=== PATIENT | male | born 1960 | race Caucasian/White ===

== ENCOUNTER 2016-11-27 18:04 | Inpatient (IN) | payer OTHER, MEDICARE ==
[~2016-11-27] VITALS: Ht 185.4 cm; Wt 91.6 kg
--- NOTE | 2016-11-27 18:35 | ED GENERAL ADULT ---
History of Present Illness General Chief Complaint: General Adult Stated Complaint: PT WAS SIB BY URGENT CARE BLOOD WAS LOW Source: patient, family Exam Limitations: no limitations Allergies Coded Allergies: NO KNOWN ALLERGIES (11/27/16) Reconcile Medications Warfarin Sodium (Coumadin) 10 MG TABLET 1 TAB PO DAILY PE/DVT (Reported) Triage Note: TRIAGE: PT SENT TO ER BY DR PERDOMO AT [facility] FOR EVAL. C/C DIFFUSE ABD PAIN SINCE THURSDAY NIGHT FOR WHICH HE HAS BEEN TAKING ASPIRIN WITH SOME RELIEF NOTED. PT TAKES COUMADIN R/T HX OF DVT AND PULMONARY EMBOLISM. PT NOW HAS BLACK/TARRY STOOLS SINCE THURSDAY. DR MULTANI REPORTED HE DID HGB IN THE OFFICE BUT GOT 2 DIFFERENT READINGS OF 9.2 AND 7.8. Triage Nurses Notes Reviewed? yes Onset: Gradual Duration: day(s): (5-6) Timing: recent history Injury Environment: home Severity: severe Modifying Factors: Worsens With: eating. Associated Symptoms: fever, abdominal pain, confusion HPI: This is a 56 year old male who presents to the ER with chief complaint of fever, abdominal pain and weakness that has gotten worse since Thursday. According to the patient and his girlfriend he started feeling ill on Thursday night. Weakness and malaise and some body aches. He states since then he has a progressive abdominal pain with some nausea. He vomited times one. Complains of some disorientation last night. He thinks he might of had a fever. Denies any known sick contacts. No recent travel. No recent antibiotic use. Of note the patient had a vascular procedure done by Dr. Adams one month ago on his left lower extremity. He states he has had a nonhealing ulcer there. According to his girlfriend who is been doing dressing changes the wound looks much improved compared to baseline. Denies any significant pain at the wound site. (ALFIE JOHNS,ALYCE) Vital Signs & Intake/Output Vital Signs & Intake/Output Vital Signs Date Time Temp Pulse Resp B/P Pulse O2 O2 Flow FiO2 Ox Delivery Rate 11/28 0717 98.0 86 20 120/58 96 Room Air 11/28 0027 99.4 95 18 140/62 97 Room Air 11/28 0000 98 Room Air 11/27 2303 99.4 93 16 106/50 96 Room Air 11/27 2100 98 16 142/65 95 Room Air 11/27 1953 Room Air 11/27 1953 103 16 126/73 11/27 1814 101.0 105 20 139/78 95 Room Air ED Intake and Output 11/28 0000 11/27 1200 Intake Total 500 Output Total Balance 500 Intake, IV 500 Patient 215 lb Weight Past History Travel History Traveled to [place] past 21 day No Medical History Any Pertinent Medical History? see below for history Neurological: NONE EENT: NONE Cardiovascular: NONE Respiratory: pulmonary embolism Gastrointestinal: NONE Hepatic: NONE Renal: NONE Musculoskeletal: FINGER AMPUTATION Psychiatric: NONE Endocrine: NONE Blood Disorders: DVT Cancer(s): NONE HOME HEALTH ATTENDANT/Reproductive: NONE Surgical History Surgical History: left leg vascular surgery by Dr. Adams one month ago Psychosocial History What is your primary language Malian Tobacco Use: Quit >30 days ago ETOH Use: denies use Illicit Drug Use: denies illicit drug use Family History Hx Contributory? No (ALYCE JUDGE MD) Review of Systems Review of Systems Constitutional: Reports: chills, fever. EENTM: Reports: no symptoms. Respiratory: Denies: cough, short of breath, sputum production. Cardiovascular: Denies: chest pain, palpitations. GI: Reports: abdominal pain, nausea, vomiting. Genitourinary: Reports: see HPI (dark urine). Denies: discharge, dysuria. Musculoskeletal: Reports: no symptoms. Skin: Reports: no symptoms. Neurological/Psychological: Reports: no symptoms. Hematologic/Endocrine: Denies: bruising, bleeding, polyuria, polydipsia. Immunologic/Allergic: Denies: splenectomy. All Other Systems: Reviewed and Negative (ALYCE JUDGE MD) Physical Exam Physical Exam General Appearance: well developed/nourished, alert, awake Head: atraumatic, normal appearance Eyes: Bilateral: normal appearance, PERRL, EOMI. Ears, Nose, Throat: normal pharynx, normal ENT inspection, hearing grossly normal Neck: normal inspection, supple, full range of motion Respiratory: normal breath sounds, chest non-tender, no respiratory distress Cardiovascular: regular rate/rhythm Peripheral Pulses: 2+ radial (R), 2+ radial (L) Gastrointestinal: normal bowel sounds, soft, abnormal bowel sounds, tenderness ( LUQ/LLQ), VOLUNTARY GUARDING Back: normal inspection, normal range of motion Extremities: normal inspection, normal capillary refill, normal range of motion, no edema (ALYCE JUDGE MD) Physical Exam Neurologic/Psych: no motor/sensory deficits, awake, alert, oriented x 3, normal mood/affect, meat lugger II-XII nml as tested Reflexes: 2+: bicep (R), bicep (L). Skin: intact, normal color Lymphatic: no anterior cervical jayson Core Measures ACS in differential dx? No CVA/TIA Diagnosis: No Severe Sepsis Present: No Septic Shock Present: No (SANGEETHA PEREZ MD) Progress Differential Diagnoses I considered the following diagnoses in my evaluation of the patient: [INFLUENZA , BACTEREMIA, SEPSIS, DIVERTICULITIS, ABSCESS, OSTEOMYELITIS, MALIGNANCY, GI BLEED, COAGULOPATHY] Diagnostic Imaging: Viewed by Me: Radiology Read, CT Scan. Discussed w/RAD: Radiology Read, CT Scan. Initial ED EKG: SINUS TACHYCARDIA @ 109 BPM Hand-Off Endorsed To: SANGEETHA PEREZ MD Endorsed Time: 1899 Pending: CT, labs (ALYCE JUDGE MD) Differential Diagnoses I considered the following diagnoses in my evaluation of the patient: Plan of Care: Orders Procedure Date/time Status Nothing by Mouth 11/28 B Active GASTROINTESTINAL FROM OR 11/28 1020 Active CULTURE,URINE 11/28 1000 Active Wound Care/Dressing 11/28 0507 Active PROTHROMBIN TIME 11/28 0500 Complete CBC WITHOUT DIFFERENTIAL 11/28 0500 Complete BASIC ELECTROLYTES PLUS BUN&CR 11/28 0500 Complete Skin/Pressure Ulcer Assess (Sk 11/28 0451 Active Pain Treatment and Response 11/28 0451 Active Vital Signs 11/28 0223 Active Teach/Educate 11/28 022 Active Nutritional Intake, Monitor 11/28 022 Active Isolation 11/28 0223 Active Intake & Output 11/28 0223 Active Patient Care Conference 11/28 0223 Active Activity/Ambulation 11/28 0223 Active BLOOD PRODUCT PICKUP 11/28 0200 Active BLOOD PRODUCT PICKUP 11/28 0126 Active BLOOD PRODUCT PICKUP 11/28 0012 Active BLOOD PRODUCT PICKUP 11/27 2255 Active Patient Data 11/27 221 Active Pathway - chart 11/27 2156 Active Patient Data 11/27 2156 Active Code Status 11/27 2156 Active FRESH FROZEN PLASMA 11/27 2156 Complete Telemetry/Distribution District Supervisor 11/27 1840 Active CULTURE,URINE 11/27 1840 Active URINALYSIS 11/27 184 Active TROPONIN LEVEL 11/27 184 Complete LIPASE 11/27 184 Complete LACTIC ACID 11/27 184 Complete ETHANOL 11/27 184 Complete EKG 11/27 1839 Active BLOOD CULTURE 11/27 182 Active PROTHROMBIN TIME 11/27 1818 Complete COMPREHENSIVE METABOLIC PANEL 11/27 1818 Complete CBC WITHOUT DIFFERENTIAL 11/27 1818 Complete TYPE & SCREEN (NOT X-MATCH) 11/27 1818 Complete VTE Mechanical Prophylaxis 11/27 UNK Active Vital Signs 11/27 UNK Active Intake & Output 11/27 UNK Active Activity/Ambulation 11/27 UNK Active Current Medications Sig/Shane Start time Last Medication Dose Stop Time Status Admin Ceftriaxone Sodium 1,000 MG 11/28 220 AC (Rocephin) Pantoprazole Sodium 40 MG DAILY 11/28 1000 AC (Protonix) Acetaminophen 1,000 MG Q8P PRN 11/27 2200 AC (Ofirmev) N/A 1 UNIT (No Carrier) Ondansetron HCl 4 MG Q6P PRN 11/27 2199 AC (Zofran) Potassium Chloride 20 MEQ .Q8H 11/270 CAN (KCl 20MEQ in D5/ N.S. 1000 ML bag) Dextrose/Sodium 1,000 ML Chloride (D5-Normal Saline) Laboratory Tests 11/28/16 0507: Anion Gap 9, Estimated GFR > 60, BUN/Creatinine Ratio 17.5, PT 21.4 H, INR 2.05 H, CBC w Diff MAN DIFF ORDERED, RBC 2.93 L, MCV 72.9 L, MCH 24.1 L, RDW 14.6 H, MPV 7.2 L, Gran % 83.8 H, Lymphocytes % 6.3 L, Monocytes % 9.2, Eosinophils % 0.4, Basophils % 0.3, Absolute Granulocytes 10.1 H, Segmented Neutrophils 92 H, Absolute Lymphocytes 0.8 L, Lymphocytes 4 L, Monocytes 3, Absolute Monocytes 1.1 H, Absolute Eosinophils 0.1, Basophils 1, Absolute Basophils 0, Platelet Estimate ADEQUATE, Polychromasia 1+, Poikilocytosis 1+, Anisocytosis 1+, Microcytic Cells 1+, Ovalocytes 1+, Elliptocytes FEW, PUBS MCHC 33.1, Fld Total RBCs Counted 100 11/27/160: Lactic Acid Cancelled 11/27/16 1853: Lactic Acid 1.1, Troponin I < 0.01, Lipase 45, Serum Alcohol < 10.0 11/27/161829: Anion Gap 12, Estimated GFR > 60, BUN/Creatinine Ratio 22.5, Glucose 141 H, Calcium 8.3 L, Total Bilirubin 0.6, AST 53, ALT 53, Alkaline Phosphatase 133 H , Total Protein 6.2 L, Albumin 3.1 L, Globulin 3.1, Albumin/Globulin Ratio 1.0 L, PT 53.0 *H, INR 5.13 *H, CBC w Diff NO MAN DIFF REQ, RBC 3.94 L, MCV 72.2 L, MCH 23.6 L, RDW 14.3, MPV 7.1 L, Gran % 87.5 H, Lymphocytes % 4.4 L, Monocytes % 7.8, Eosinophils % 0.2, Basophils % 0.1, Absolute Granulocytes 12.8 H, Absolute Lymphocytes 0.6 L, Absolute Monocytes 1.1 H, Absolute Eosinophils 0, Absolute Basophils 0, PUBS MCHC 32.7 L Microbiology 11/28 1020 GI FROM OR: Culture & Sensitivity - COLB 11/28 1020 GI FROM OR: Gram Stain - COLB 11/28 1000 URINE ROUT: Urine Culture - COLB 11/27 1847 BLOOD: Blood Culture - RECD 11/27 1839 URINE ROUT: Urine Culture - COLB 11/27 1829 BLOOD: Blood Culture - RECD Radiology Impression: This is a complex abnormal unfortunate case. There is an 8 cm segment of the distal transverse colon with circumferential wall thickening consistent with malignancy. Along the posterior inferior margin of this abnormal colon, the wall appears absent, consistent with erosion/perforation at the site of the malignancy. There is a contained perforation in the central abdomen measuring 8.9 x 6 x 8.2 cm adjacent the site of perforation. Multiple lobular low density masses are seen within the anterior abdominal wall from the left upper quadrant, across the anterior abdomen, to the right lower quadrant. The appearance is consistent with peritoneal carcinomatosis, presumably metastasis from mucinous primary lesion. Additional likely peritoneal metastatic disease is seen along the right lateral aspect of the liver, scalloping the dome of the liver. Two 4-5 mm left lower lobe pulmonary nodules are seen. Based on their appearance, these are nonspecific, but they should be considered at least mildly suspicious for metastatic disease given the findings in the abdomen. There is a hiatal hernia with herniated fat from the abdomen. There is partially imaged low density fluid in the hernia sac, possibly metastatic disease given the findings in the abdomen. (SANGEETHA PEREZ MD) Departure Departure Condition: Stable Referrals: SHAHRIAR TEJADA MD (PCP/Family) Departure Forms: Customer Survey General Discharge Information (ALFIE JOHNS,ALYCE) Departure Time of Disposition: 2125 Disposition: STILL A PATIENT Clinical Impression Primary Impression: Perforation of colon Secondary Impressions: Anemia Qualifiers: Anemia type: unspecified type Qualified Code: D64.9 - Anemia, unspecified GI bleeding Qualifiers: GI bleed type/associated pathology: unspecified gastrointestinal hemorrhage type Qualified Code: K92.2 - Gastrointestinal hemorrhage, unspecified Warfarin-induced coagulopathy Admission Note Spoke With: SUZY JOHNS,MINOO De La Garza Documentation of Exam: Documentation of any treatments & extenuating circumstances including Concerns Regarding Discharge (functional status, medication knowledge or non-compliance, living conditions, etc.) that warrant an admission rather than observation: Serial lab exam IV analgesia IV antibiotics Coumadin reversal surgery intervention oncology evaluation psychiatry evaluation continuing care discharge planning (SANGEETHA PEREZ MD) Critical Care Note Critical Care Note Critical Care Time: non-applicable (SANGEETHA PEREZ MD)
[2016-11-27 18:42] LABS: ABSOLUTE BASOPHIL COUNT 0 /CUMM (0.0-0.2); ABSOLUTE EOSINOPHIL COUNT 0 /CUMM (0.0-0.7); ABSOLUTE GRANULOCYTE CT 12.8 /CUMM (1.4-6.5); ABSOLUTE LYMPH COUNT 0.6 /CUMM (1.2-3.4); ABSOLUTE MONOCYTE COUNT 1.1 /CUMM (0.10-0.60); BASOPHIL % 0.1 % (0.0-2.0); EOSINOPHIL % 0.2 % (0-5); HEMATOCRIT 28.5 % (42-52); MEAN CORPUSCULAR HGB 23.6 PG (27.0-31.0); MEAN CORPUSCULAR HGB CONC 32.7 G/DL (33.0-37.0); MEAN CORPUSCULAR VOLUME 72.2 FL (80.0-94.0); MEAN PLATELET VOLUME 7.1 FL (7.4-10.4); PLATELET COUNT 519 /CUMM (130-400); RBC DISTRIBUTION WIDTH 14.3 % (11.5-14.5); RED BLOOD CELL CT 3.94 /CUMM (4.70-6.10); WHITE BLOOD CELL COUNT 14.6 /CUMM (4.8-10.8)
[2016-11-27 19:04] LABS: GRANULOCYTE % 87.5 % (42.2-75.2)
--- NOTE | 2016-11-27 20:02 | RADIOLOGY REPORT ---
EXAMINATION: XR FOOT, LEFT CLINICAL INFORMATION: Left foot wound and fever. COMPARISON: None. TECHNIQUE: AP, lateral, and oblique views of the left foot. FINDINGS: No acute osseous or articular abnormality involving the left foot. No cortical destruction or significant periosteal reaction is identified. There is minimal joint space narrowing involving the proximal and distal interphalangeal joints of the left foot. No radiopaque foreign bodies are identified. IMPRESSION: No significant cortical destruction or periosteal reaction. No acute osseous or articular abnormality involving the left foot. However, please note that MRI and nuclear medicine bone scan are more sensitive in evaluating for acute osteomyelitis. If clinical concern for acute osteomyelitis persists, consider correlation with one of these imaging modalities.
--- NOTE | 2016-11-27 20:13 | CT SCAN REPORT ---
EXAMINATION: CT ABDOMEN AND PELVIS WITH CONTRAST CLINICAL INFORMATION: Rule out diverticulitis or abscess. Abdominal pain for 5 days. Fever and weakness COMPARISON: None. TECHNIQUE: Multidetector volumetric imaging was performed from the lung bases through the pubic symphysis following the uneventful administration of: Oral contrast: No Intravenous contrast: 95 cc Optiray 320 Sagittal and coronal reformatted images were obtained on the technologist workstation. FINDINGS: LUNG BASES: 4 to 5 mm left lower lobe pulmonary nodule in image 10/94. 4-5 mm left lower lobe pulmonary nodule in image 11/94. LIVER, GALLBLADDER, AND BILIARY TREE: There is a low density perihepatic implant between the right diaphragm and the dome of the liver that measures 5.3 x 4.4 cm transaxially, better appreciated on the coronal images weren't measures 1.8 cm craniocaudal. This scallops the liver margin. Additional capsular abnormality is seen along the periphery of the right lobe of the liver more inferiorly. There is a 1.9 x 1.4 cm low-density lesion medial to the right lobe of the liver, segment 6, image 22. No hepatic parenchymal abnormalities are seen however. The hepatic and portal veins enhance normally. The gallbladder is unremarkable with no evidence of radiopaque gallstones, gallbladder wall thickening, or obvious pericholecystic inflammatory changes. PANCREAS: Normal; no mass or surrounding fluid. SPLEEN: Normal size. No focal lesion. ADRENAL GLANDS: Normal; no mass. KIDNEYS AND URETERS: GASTROINTESTINAL TRACT: Stomach and small bowel non-dilated. No colonic wall thickening or pericolonic inflammatory changes. Normal appendix. ABDOMINAL WALL: No significant hernia is appreciated. LYMPHOVASCULAR STRUCTURES: No lymphadenopathy. The aorta is unremarkable. BLADDER: No focal mass or wall thickening seen. No bladder calculi. PELVIC VISCERA: Unremarkable. OSSEOUS STRUCTURES: No acute or suspicious osseous abnormality. IMPRESSION: No significant abnormality.
--- NOTE | 2016-11-27 22:01 | Admission Core Measures ---
Admission Lab Results I reviewed the following labs: Laboratory Tests 11/27 11/27 11/27 2140 1853 1830 Chemistry Sodium (137 - 145 mmol/L) 135 L Potassium (3.5 - 5.1 mmol/L) 3.8 Chloride (98 - 107 mmol/L) 100 Carbon Dioxide (22 - 30 mmol/L) 23 Anion Gap (5 - 16) 12 BUN (9 - 20 mg/dL) 18 Creatinine (0.7 - 1.2 mg/dL) 0.8 Estimated GFR (>60 ml/min) > 60 BUN/Creatinine Ratio (7 - 25 %) 22.5 Glucose (65 - 99 mg/dL) 141 H Lactic Acid (0.7 - 2.1 mmol/L) Cancelled 1.1 Calcium (8.4 - 10.2 mg/dL) 8.3 L Total Bilirubin (0.2 - 1.3 mg/dL) 0.6 AST (17 - 59 U/L) 53 ALT (21 - 72 U/L) 53 Alkaline Phosphatase (< 127 U/L) 133 H Troponin I (<0.11 ng/ml) < 0.01 Total Protein (6.3 - 8.2 g/dL) 6.2 L Albumin (3.5 - 5.0 g/dL) 3.1 L Globulin (1.9 - 4.2 gm/dL) 3.1 Albumin/Globulin Ratio (1.1 - 2.2 %) 1.0 L Lipase (23 - 300 U/L) 45 Coagulation PT (9.4 - 12.5 SEC) 53.0 *H INR (0.90 - 1.17) 5.13 *H Hematology CBC w Diff NO MAN DIFF REQ WBC (4.8 - 10.8 /CUMM) 14.6 H RBC (4.70 - 6.10 /CUMM) 3.94 L Hgb (14.0 - 18.0 G/DL) 9.3 L Hct (42 - 52 %) 28.5 L MCV (80.0 - 94.0 FL) 72.2 L MCH (27.0 - 31.0 PG) 23.6 L RDW (11.5 - 14.5 %) 14.3 Plt Count (130 - 400 /CUMM) 519 H MPV (7.4 - 10.4 FL) 7.1 L Gran % (42.2 - 75.2 %) 87.5 H Lymphocytes % (20.5 - 51.1 %) 4.4 L Monocytes % (1.7 - 9.3 %) 7.8 Eosinophils % (0 - 5 %) 0.2 Basophils % (0.0 - 2.0 %) 0.1 Absolute Granulocytes (1.4 - 6.5 /CUMM) 12.8 H Absolute Lymphocytes (1.2 - 3.4 /CUMM) 0.6 L Absolute Monocytes (0.10 - 0.60 /CUMM) 1.1 H Absolute Eosinophils (0.0 - 0.7 /CUMM) 0 Absolute Basophils (0.0 - 0.2 /CUMM) 0 PUBS MCHC (33.0 - 37.0 G/DL) 32.7 L Toxicology Serum Alcohol (<10 MG/DL) < 10.0 Admission Meds I reviewed the following Meds: Current Medications Sig/Shane Start time Last Medication Dose Stop Time Status Admin Acetaminophen 1,000 MG Q8P PRN 11/27 2200 UNVr (Ofirmev) N/A 1 UNIT (No Carrier) Ceftriaxone Sodium 1,000 MG DAILY 11/28 1000 UNVr (Rocephin) Hydromorphone HCl 1 MG Q2-3 HRS NEEDED.. 11/27 2200 UNVr (Dilaudid) Metronidazole 500 MG IQ8 11/28 0000 UNVr (Flagyl) N/A 1 UNIT (No Carrier) Metronidazole 500 MG ONCE ONE 11/27 2114 AC (Flagyl) 11/27 2213 N/A 1 UNIT (No Carrier) Ondansetron HCl 4 MG Q6P PRN 11/27 220 UNVr (Zofran) Pantoprazole Sodium 40 MG DAILY 11/28 1000 UNVr (Protonix) Phytonadione 10 MG ONCE ONE 11/270 UNVr (Vitamin K) 11/27 2200 Potassium Chloride 20 MEQ .Q8H 11/27 220 UNVr (KCl 20MEQ in D5/ N.S. 1000 ML bag) Dextrose/Sodium 1,000 ML Chloride (D5-Normal Saline) Acute Coronary Syndrome Inclusion Criteria ACS Diagnosis No Inpatient Core Measures LDL Reminder: If No, please order W/I first 24hr of stay Congestive Heart Failure Inclusion Criteria CHF Diagnosis No Cerebrovascular accident Inclusion Criteria CVA/TIA Diagnosis No Inpatient Core Measures Bedside Swallow Eval Reminder: If BSE failed, place ST order Antithrombotic Reminder: Order Antithrombotic Medication by end of day 2 Antithrombotic Reminder: Document Reason Antithrombotic Not ordered by end of day 2 AFIB/Flutter Reminder: If Present, add to problem list AFIB/Flutter Reminder: Order Anticoag Medication for pts with AFIB/Flutter Atherosclerosis Reminder: If Present, add to problem list LDL Reminder: If No, please order W/I first 24hr of stay PT Order Reminder: If No, please order Venous thromboembolism Inpatient Core Measures VTE Risk Factors: Age > 40 VTE Prophylaxis Ordered Inpt [facility]AL[facility]) [facility]t No contraindications No VTE Pharm Prophylaxis d/t Surgical contraindication Inclusion Criteria - Per Current guidelines, there needs to be overlap - treatment for the first 5 days of Warfarin therapy. - Parenteral Anticoagulation (IV or SC) needs to be - given along with Warfarin therapy. VTE Diagnosis No VTE Type NONE VTE Confirmed by (Test) NONE Problem List As ranked by this Provider includes Assessment & Plan 1. Perforation of colon
--- NOTE | 2016-11-27 22:07 | History & Physical Pre-Op ---
SANDRA FRANCO 11/27/16 2201: General Information and HPI MD Statement: I have seen and personally examined LIANNE GONZALES and documented this H&P. The patient is a 56 year old M who presented with a patient stated chief complaint of abdominal pain. Source of Information: patient Exam Limitations: no limitations History of Present Illness: This is a 56-year-old male who presents to the emergency department after approximately a five-day history of abdominal pain. The patient was seen he reports the onset of his pain was on Thursday and was sudden in nature. The pain has been primarily around his umbilical area and has not changed much in location. He describes his pain is sharp and constant in nature without radiation. He complains associated nausea and vomiting as well as low-grade temperatures at home. He is been experiencing looser than normal bowel movements which had been darker nature so he went to a walk-in clinic the day prior where they found him to be anemic and guaiac positive so was referred to the hospital. He has a liquids the current time and denies any recent weight loss and has never had a colonoscopy. 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 Aadms one month ago Past Family/Social History Psychosocial History Smoking Status: Never Smoked ETOH Use: denies use Illicit Drug Use: denies illicit drug use Functional Ability ADLs Independent: dressing, eating, toileting, bathing. Ambulation: independent IADLs Independent: shopping, housework, finances, food prep, telephone, transportation , medication admin. Employment History Employment: Disability Review of Systems Review of Systems Cardiovascular: Denies: chest pain, palpitations. Respiratory: Denies: cough, short of breath. Genitourinary: Denies: dysuria, hematuria. Exam & Diagnostic Data Last 24 Hrs of Vital Signs/I&O Vital Signs Date Time Temp Pulse Resp B/P Pulse O2 O2 Flow FiO2 Ox Delivery Rate 11/27 1953 Room Air 11/27 1953 103 16 126/73 11/27 1814 101.0 105 20 139/78 95 Room Air Laboratory Tests 11/27 11/27 11/27 2140 1853 1830 Chemistry Sodium (137 - 145 mmol/L) 135 L Potassium (3.5 - 5.1 mmol/L) 3.8 Chloride (98 - 107 mmol/L) 100 Carbon Dioxide (22 - 30 mmol/L) 23 Anion Gap (5 - 16) 12 BUN (9 - 20 mg/dL) 18 Creatinine (0.7 - 1.2 mg/dL) 0.8 Estimated GFR (>60 ml/min) > 60 BUN/Creatinine Ratio (7 - 25 %) 22.5 Glucose (65 - 99 mg/dL) 141 H Lactic Acid (0.7 - 2.1 mmol/L) Cancelled 1.1 Calcium (8.4 - 10.2 mg/dL) 8.3 L Total Bilirubin (0.2 - 1.3 mg/dL) 0.6 AST (17 - 59 U/L) 53 ALT (21 - 72 U/L) 53 Alkaline Phosphatase (< 127 U/L) 133 H Troponin I (<0.11 ng/ml) < 0.01 Total Protein (6.3 - 8.2 g/dL) 6.2 L Albumin (3.5 - 5.0 g/dL) 3.1 L Globulin (1.9 - 4.2 gm/dL) 3.1 Albumin/Globulin Ratio (1.1 - 2.2 %) 1.0 L Lipase (23 - 300 U/L) 45 Coagulation PT (9.4 - 12.5 SEC) 53.0 *H INR (0.90 - 1.17) 5.13 *H Hematology CBC w Diff NO MAN DIFF REQ WBC (4.8 - 10.8 /CUMM) 14.6 H RBC (4.70 - 6.10 /CUMM) 3.94 L Hgb (14.0 - 18.0 G/DL) 9.3 L Hct (42 - 52 %) 28.5 L MCV (80.0 - 94.0 FL) 72.2 L MCH (27.0 - 31.0 PG) 23.6 L RDW (11.5 - 14.5 %) 14.3 Plt Count (130 - 400 /CUMM) 519 H MPV (7.4 - 10.4 FL) 7.1 L Gran % (42.2 - 75.2 %) 87.5 H Lymphocytes % (20.5 - 51.1 %) 4.4 L Monocytes % (1.7 - 9.3 %) 7.8 Eosinophils % (0 - 5 %) 0.2 Basophils % (0.0 - 2.0 %) 0.1 Absolute Granulocytes (1.4 - 6.5 /CUMM) 12.8 H Absolute Lymphocytes (1.2 - 3.4 /CUMM) 0.6 L Absolute Monocytes (0.10 - 0.60 /CUMM) 1.1 H Absolute Eosinophils (0.0 - 0.7 /CUMM) 0 Absolute Basophils (0.0 - 0.2 /CUMM) 0 PUBS MCHC (33.0 - 37.0 G/DL) 32.7 L Toxicology Serum Alcohol (<10 MG/DL) < 10.0 CAT scan of the abdomen pelvis: IMPRESSION: This is a complex abnormal unfortunate case. There is an 8 cm segment of the distal transverse colon with circumferential wall thickening consistent with malignancy. Along the posterior inferior margin of this abnormal colon, the wall appears absent, consistent with erosion/perforation at the site of the malignancy. There is a contained perforation in the central abdomen measuring 8.9 x 6 x 8.2 cm adjacent the site of perforation. Multiple lobular low density masses are seen within the anterior abdominal wall from the left upper quadrant, across the anterior abdomen, to the right lower quadrant. The appearance is consistent with peritoneal carcinomatosis, presumably metastasis from mucinous primary lesion. Additional likely peritoneal metastatic disease is seen along the right lateral aspect of the liver, scalloping the dome of the liver. Two 4-5 mm left lower lobe pulmonary nodules are seen. Based on their appearance, these are nonspecific, but they should be considered at least mildly suspicious for metastatic disease given the findings in the abdomen. There is a hiatal hernia with herniated fat from the abdomen. There is partially imaged low density fluid in the hernia sac, possibly metastatic disease given the findings in the abdomen. Physical Exam: Gen.: Alert and obvious distress Skin: Warm and dry without jaundice Chest: Nontender with equal expansion Cardiac: S1-S2 regular Pulmonary: Bilateral breath sounds are equal with good exchange Abdomen: Soft, mildly distended, mild generalized tenderness with more significant tenderness in the left upper quadrant. There is a palpable mass in the left upper quadrant with mild rebound but no guarding. Bowel sounds are positive and there are no hernias appreciated. Extremities: Bilateral lower extremities are warm without calf tenderness or significant edema. Left ankle is wrapped with bandage. Assessment/Plan Assessment/Plan: Assessment: This is a 56-year-old male with an approximately one-week history of increasing abdominal pain. The emergency department workup was significant for a perforated viscus most probably colon in etiology. The patient's vital signs relatively stable and he has only focal peritoneal signs. Case was discussed with Minoo Almonte MD Plan: The patient will be kept nothing by mouth with IV hydration Due to the elevated INR and the urgent need for surgery the patient will receive vitamin K and FFP and his laboratory studies will be repeated early in the morning. If diet is are acceptable and exam is still reasonable the patient reports operating theater in the morning for a diagnostic laparotomy. Start IV antibiotics GI and DVT prophylaxis PRN pain medications, antipyretics and antiemetics As Ranked By This Provider Problem List: 1. Perforation of colon MINOO ALMONTE MD 11/28/16 0840: General Information and HPI Allergies/Medications Home Med list Warfarin Sodium (Coumadin) 10 MG TABLET 1 TAB PO DAILY PE/DVT (Reported) Attending MD Review Statement Attending Statement Attending MD Statement: discuss w/resident/PA/RN HOSPITAL, reviewed images Attending Assessment/Plan: This is a 56-year-old male with progressive abdominal pain over the course of 4 days. He has fevers and left upper quadrant abdominal pain, with associated palpable mass in the left upper quadrant.. Anemia as noted on his blood count as well as leukocytosis. CT scan images were personally reviewed. Findings showed a partially contained perforation of the bowel in the epigastrium/left upper quadrant. It appears to be localized around an inflamed portion of the distal transverse colon. There is also associated intraperitoneal free air. Further minor there are nodular/solid appearing lesions in the left upper quadrant and right upper abdomen concerning for metastatic implants related to perforated colon cancer. Currently his INR is prohibitive of surgery. Treatment will involve vitamin K and transfusion of FFP to correct his INR. He' ll begin broad-spectrum IV antibiotics and made nothing by mouth. After correction he'll be brought to the operating room for exploratory laparotomy and bowel resection, likely colostomy. Patient's informed the risk of the operation including bleeding requiring transfusion, recurrent infection, and the likely need for colostomy. 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 He had DVT and PE. He is unsure if he was diagnosed with a clotting disorder. His INR we corrected perioperatively. Decision for re-anticoagulation will be made pending his clinical course.
[2016-11-27] MEDS ORDERED: COUMADIN10 M1 PO (23:57)
[2016-11-28 00:27] VITALS: BP 140/62
[2016-11-28 05:29] LABS: ABSOLUTE BASOPHIL COUNT 0 /CUMM (0.0-0.2); ABSOLUTE EOSINOPHIL COUNT 0.1 /CUMM (0.0-0.7); ABSOLUTE GRANULOCYTE CT 10.1 /CUMM (1.4-6.5); ABSOLUTE LYMPH COUNT 0.8 /CUMM (1.2-3.4); ABSOLUTE MONOCYTE COUNT 1.1 /CUMM (0.10-0.60); BASOPHIL % 0.3 % (0.0-2.0); EOSINOPHIL % 0.4 % (0-5); GRANULOCYTE % 83.8 % (42.2-75.2); MEAN CORPUSCULAR HGB 24.1 PG (27.0-31.0); MEAN CORPUSCULAR HGB CONC 33.1 G/DL (33.0-37.0); MEAN CORPUSCULAR VOLUME 72.9 FL (80.0-94.0); MEAN PLATELET VOLUME 7.2 FL (7.4-10.4); PLATELET COUNT 384 /CUMM (130-400); RBC DISTRIBUTION WIDTH 14.6 % (11.5-14.5); WHITE BLOOD CELL COUNT 12.1 /CUMM (4.8-10.8)
[2016-11-28 05:58] LABS: PT 21.4 SEC (9.4-12.5); RED BLOOD CELL CT 2.93 /CUMM (4.70-6.10)
[2016-11-28 06:00] LABS: HEMATOCRIT 21.3 % (42-52)
[2016-11-28 07:17] VITALS: BP 120/58
[2016-11-28 13:27] LABS: PT 17.5 SEC (9.4-12.5)
[2016-11-28 13:28] LABS: ABSOLUTE BASOPHIL COUNT 0 /CUMM (0.0-0.2); ABSOLUTE EOSINOPHIL COUNT 0 /CUMM (0.0-0.7); ABSOLUTE GRANULOCYTE CT 7.4 /CUMM (1.4-6.5); ABSOLUTE LYMPH COUNT 0.4 /CUMM (1.2-3.4); ABSOLUTE MONOCYTE COUNT 0.5 /CUMM (0.10-0.60); BASOPHIL % 0 % (0.0-2.0); EOSINOPHIL % 0.2 % (0-5); GRANULOCYTE % 89.3 % (42.2-75.2); HEMATOCRIT 24.5 % (42-52); MEAN CORPUSCULAR HGB 23.6 PG (27.0-31.0); MEAN CORPUSCULAR VOLUME 73.8 FL (80.0-94.0); MEAN PLATELET VOLUME 7.8 FL (7.4-10.4); PLATELET COUNT 445 /CUMM (130-400); RED BLOOD CELL CT 3.32 /CUMM (4.70-6.10); WHITE BLOOD CELL COUNT 8.3 /CUMM (4.8-10.8)
[2016-11-28 14:39] VITALS: BP 112/60
--- NOTE | 2016-11-28 15:23 | Operative Report ---
Operative/Inv Procedure Report Surgery Date: 11/28/16 Name of Procedure: 1. Subtotal colectomy with end right colostomy 2. Drainage of intraperitoneal abscess 3. Resection of peritoneal tumor Pre-Operative Diagnosis: Perforated colon cancer Post-Operative Diagnosis: Same Estimated Blood Loss: less than 50ml Surgeon/Business Loan Processor: SUZY JOHNS,MINOO De La Garza/Kendy MCKEON Anesthesia: general endotracheal tube Specimens: 1. Transverse colon with omental cake 2. Sigmoid colon with mid sigmoid implant versus primary cancer 3. Right diaphragmatic peritoneal implant Microbiology: Abscess cavity contents for culture Operative/Procedure Note Note: After consent is brought to the operating room laid supine. Gen. anesthesia was obtained and his abdomen was prepped and draped. The skin in the midline was incised sharply. We dissected the subcutaneous tissues with cautery and incised linea alba area with cautery. Peritoneum was entered sharply. The wound fully mobilized. Abdomen was explored. There is evidence of a massive tumor in the epigastric region that appeared to encase the mid to distal transverse colon. There is tumor caking throughout the transverse colon up to the splenic flexure. There was peritoneal studding in the right diaphragmatic region. There is another tumor on the mid sigmoid colon. We began by dissecting the transverse colon. There was multiple loops of small bowel tethered to the omentum. These adhesions were taken down bluntly and we came into a large abscess cavity with foul-smelling purulent fluid and gas. A specimen was sent for culture. The cavity was evacuated suction irrigated. The tumor was fairly fixed to the surrounding structures. We began by getting into a plane and the gastrocolic ligament using the LigaSure device. We cut came up to the splenic flexure around the tumor with this device. Then turned my attention to the left colon took down the white line of Toldt with cautery and dissected up to the splenic flexure. We painstakingly dissected this area back and forth until we brought down the splenic flexure proper. At this point the entire tumor mass was fully mobilized into the wound. We divided the proximal transverse colon with the CAITLIN stapler and took the mesenteric vessels with the LigaSure device. Left colon was then divided with the CAITLIN stapler and specimen passed off the field. We then turned attention to the sigmoid colon. There was a 4-5 cm tumor on the mid sigmoid. It was impossible to tell whether this was coming from intraluminal out or from the outside in. Therefore I elected to resect the sigmoid colon as well. We took down the white line of Toldt down to the pelvis and created an avascular plane along the mesenteric pedicle. We dissected the sigmoidal vessels with the lymphovascular envelope down to level of the rectosigmoid junction. Vessels were divided with LigaSure device up to level the rectum. The rectosigmoid junction was then divided with the CAITLIN stapler. The sigmoid colon was passed off the field. Hemostasis was adequate.. No cavity isn't irrigated normal saline. Then turned attention to the right upper quadrant where there was some peritoneal implants. 2 of these implants were peeled off the diaphragmatic muscle with cautery. There is passed off the field. Hemostasis achieved with cautery. There other implants there were smaller and left in situ. Rest the small bowel was inspected along with the colon and there is no further evidence of tumor. We then created a ostomy site in the right upper abdomen by taking ellipse of skin and subcutaneous tissues with cautery. The fascia was incised in a cruciate fashion and the rectus muscle split. The posterior rectus was divided similar fashion. The right colon was then brought up into the wound. The fascia was then closed with a running 0 Maxon suture. The skin was closed with cheikh loosely. We then matured the stoma in a Rashida type fashion with interrupted 3-0 Vicryl sutures. Stoma appliance was applied. Sponge are correct. Patient tolerated procedure well. CC: MALLORY JOHNS,SHAHRIAR Bae
[2016-11-28 16:38] VITALS: BP 102/60
--- NOTE | 2016-11-28 20:13 | PN- General Surgery ---
Subjective Subjective: Postop check Pt is now pod #0 s/p Munira's procedure for perforated viscus due to mass. Pt is seen on the gen med floor. He has no major complaints at this time. NGT remains in place. Pt denies nausea. Pain is well controlled. Objective Vital Signs and I&Os Vital Signs Date Time Temp Pulse Resp B/P Pulse O2 O2 Flow FiO2 Ox Delivery Rate 11/28 1638 98.4 75 21 102/60 93 Room Air 11/28 1439 98.2 82 20 112/60 94 Room Air Room Air 11/28 0717 98.0 86 20 120/58 96 Room Air 11/28 0027 99.4 95 18 140/62 97 Room Air 11/28 0000 98 Room Air 11/27 2303 99.4 93 16 106/50 96 Room Air 11/27 2100 98 16 142/65 95 Room Air Intake & Output 11/28 1600 11/28 0800 11/28 0000 11/27 1600 11/27 0800 11/27 0000 Intake Total 450 250 500 Output Total 200 650 Balance 250 -400 500 Intake, IV 450 250 500 Intake, Oral 0 0 Number 0 0 Bowel Movements Output, Urine 200 650 Patient 215 lb Weight Physical Exam: Gen.: Patient is awake and alert. No acute distress. He is in good spirits, but occasionally doses off during the exam. Abdomen: Soft and mildly distended. Midline dressing contains a large amount of red blood, but it is not leaking outside of the dressing. Stoma is pink and viable, but edematous. No drainage or air in the bag of his severe. No bowel sounds are heard as of yet. Extremities: No significant edema in the bilateral lower extremities, but there is an open wound on the left medial ankle, which patient states is been treated as an outpatient by Dr. Anderson. He uses a daily dry dressing with bacitracin. Feet are warm. There is an area of chronic hyperpigmentation on the anterior left lower leg as well. Assessment/Plan Assessment/Plan Pt is a56 yo M with a hx of PE/DVT (on Coumadin prior to admission), who is now POD #0 s/p Munira's procedure for perforated colon mass. Plan: -NPO with NGT. Await bowel function. -IVF at 125/hour. -Monitor electrolytes. Repeat CBC in am. -Pain control with intermittent dilaudid as needed. -IV antibiotics, rocephin and flagyl, for peritonitis. -DVT ppx with Lovenox starting today. Hold Coumadin for now. -GI ppx. -Monitor wound. If further bleeding, dressing may need reinforcement. Core Measures/Miscellaneous Gabriel Catheter Date In: 11/28/16 Still Needed? Yes Venous Thromboembolism VTE Risk Factors: Acute medical illness, Age > 40, Previous VTE, Surgery VTE Contraindications: No Contraindications VTE Prophylaxis Ordered Inpt Mechanical (ALPS/TEDS) VTE Diagnosis: No VTE Type: NONE VTE Confirmed by (Test): NONE Beta Caroline Is Beta Caroline a Home Med? No Antibiotics Is Patient on Antibiotics? Yes If Yes: infection
[2016-11-28 23:20] VITALS: BP 123/66
[2016-11-29 06:00] VITALS: BP 110/70
[2016-11-29 07:28] VITALS: BP 120/58
--- NOTE | 2016-11-29 11:04 | PN- General Surgery ---
See Addendum Subjective Subjective: POD #1 s/p exploratory laparotomy/colon resection/colostomy placement for transverse colon mass. NGT remains in place to wall suction. No N/V, F/C, CP/ SOB. Ambulating well. Voiding via elizabeth catheter. Objective Vital Signs and I&Os Vital Signs Date Time Temp Pulse Resp B/P Pulse O2 O2 Flow FiO2 Ox Delivery Rate 11/29 0728 98.1 95 20 120/58 93 Room Air 11/29 0600 98.0 98 20 110/70 94 Room Air 11/28 2320 97.9 86 20 123/66 94 Room Air 11/28 1638 98.4 75 21 102/60 93 Room Air 11/28 1439 98.2 82 20 112/60 94 Room Air Room Air Intake & Output 11/29 1600 11/29 0800 11/29 0000 11/28 1600 11/28 0800 11/28 0000 Intake Total 1200 500 450 250 500 Output Total 500 825 200 650 Balance 700 -325 250 -400 500 Intake, IV 1200 500 450 250 500 Intake, Oral 0 0 Number 0 0 Bowel Movements Output, 100 125 Gastric Drainage Output, Urine 400 700 200 650 Patient 215 lb Weight Physical Exam: Gen: AAOx3 in NAD, flight of ideas. Cor: S1+S2+ Lungs: CTA jermaine Abd: soft, NT, ND, ostomy pink, viable, no gas or stool in bag. Incisional dressing saturated with sanguinous drainage- replaced with gauze. Incision intact with cheikh. Appliance lifting off- RN notified. Ext: no edema or calf tenderness to jermaine lower extremities. Current Medications: Current Medications Sig/Shane Start time Last Medication Dose Route Stop Time Status Admin Acetaminophen 1,000 MG Q8P PRN 11/28 1800 AC N/A 1 UNIT IV Acetaminophen 1,000 MG Q8P PRN 11/270 DC N/A 1 UNIT IV Ceftriaxone Sodium 1,000 MG 11/28 CAN IV Ceftriaxone Sodium 1,000 MG DAILY@11/28 2130 AC 11/28 IV 2113 Enoxaparin Sodium 40 MG 1600 11/29 1600 AC SC Hydromorphone HCl 2 MG Q2-3 HRS NEEDED.. 11/28 1245 DC 11/29 IV 0322 Hydromorphone HCl 1 MG Q2-3 HRS NEEDED.. 11/28 1230 AC 11/29 IV 0933 Hydromorphone HCl 1 MG Q2-3 HRS NEEDED.. 11/27 2200 DC 11/28 IV 0353 Lorazepam 1 MG Q8P PRN 11/29 0615 AC 11/29 IV 0640 Metronidazole 500 MG Q8 11/28 1400 AC 11/29 N/A 1 UNIT IV 0620 Metronidazole 500 MG Q8 11/28 0600 DC 11/28 N/A 1 UNIT IV 0657 Ondansetron HCl 4 MG Q6P PRN 11/28 1230 AC IV Ondansetron HCl 4 MG Q6P PRN 11/27 2200 DC IV Pantoprazole Sodium 40 MG DAILY 11/29 1000 AC 11/29 IV 0935 Pantoprazole Sodium 40 MG DAILY 11/28 1000 DC IV Potassium Chloride 20 MEQ Q8H 11/28 1230 AC 11/29 Dextrose/Sodium 1,000 ML IV 0935 Chloride Potassium Chloride 20 MEQ Q8H 11/27 2330 DC 11/28 Dextrose/Sodium 1,000 ML IV 0353 Chloride Results Last 48 Hours of Labs: Laboratory Tests 11/29 11/28 1025 1310 Chemistry Sodium (137 - 145 mmol/L) Pending 138 Potassium (3.5 - 5.1 mmol/L) Pending 4.6 Chloride (98 - 107 mmol/L) Pending 105 Carbon Dioxide (22 - 30 mmol/L) Pending 22 Anion Gap (5 - 16) Pending 11 BUN (9 - 20 mg/dL) Pending 14 Creatinine (0.7 - 1.2 mg/dL) Pending 0.8 Estimated GFR (>60 ml/min) > 60 BUN/Creatinine Ratio (7 - 25 %) Pending 17.5 Glucose (65 - 99 mg/dL) 156 H Phosphorus Pending Magnesium (1.6 - 2.3 mg/dL) Pending 1.9 Coagulation PT (9.4 - 12.5 SEC) Pending 17.5 H INR (0.90 - 1.17) Pending 1.68 H Hematology CBC w Diff Pending MAN DIFF ORDERED WBC (4.8 - 10.8 /CUMM) Pending 8.3 RBC (4.70 - 6.10 /CUMM) Pending 3.32 L Hgb (14.0 - 18.0 G/DL) Pending 7.8 L Hct (42 - 52 %) Pending 24.5 L MCV (80.0 - 94.0 FL) Pending 73.8 L MCH (27.0 - 31.0 PG) Pending 23.6 L RDW (11.5 - 14.5 %) Pending 15.0 H Plt Count (130 - 400 /CUMM) Pending 445 H MPV (7.4 - 10.4 FL) Pending 7.8 Gran % (42.2 - 75.2 %) 89.3 H Lymphocytes % (20.5 - 51.1 %) 4.8 L Monocytes % (1.7 - 9.3 %) 5.7 Eosinophils % (0 - 5 %) 0.2 Basophils % (0.0 - 2.0 %) 0 L Absolute Granulocytes (1.4 - 6.5 /CUMM) 7.4 H Absolute Lymphocytes (1.2 - 3.4 /CUMM) 0.4 L Absolute Monocytes (0.10 - 0.60 /CUMM) 0.5 Absolute Eosinophils (0.0 - 0.7 /CUMM) 0 Absolute Basophils (0.0 - 0.2 /CUMM) 0 Platelet Estimate (ADEQUATE) VERIFIED BY SMEAR Hypochromic-Microcytic 1+ Poikilocytosis 1+ Anisocytosis 1+ Microcytic Cells 1+ Ovalocytes 1+ PUBS MCHC (33.0 - 37.0 G/DL) Pending 32.0 L 11/28 11/27 11/27 0507 2140 1853 Chemistry Sodium (137 - 145 mmol/L) 138 Potassium (3.5 - 5.1 mmol/L) 3.5 Chloride (98 - 107 mmol/L) 104 Carbon Dioxide (22 - 30 mmol/L) 25 Anion Gap (5 - 16) 9 BUN (9 - 20 mg/dL) 14 Creatinine (0.7 - 1.2 mg/dL) 0.8 Estimated GFR (>60 ml/min) > 60 BUN/Creatinine Ratio (7 - 25 %) 17.5 Lactic Acid (0.7 - 2.1 mmol/L) Cancelled 1.1 Troponin I (<0.11 ng/ml) < 0.01 Lipase (23 - 300 U/L) 45 Coagulation PT (9.4 - 12.5 SEC) 21.4 H INR (0.90 - 1.17) 2.05 H Hematology CBC w Diff MAN DIFF ORDERED WBC (4.8 - 10.8 /CUMM) 12.1 H RBC (4.70 - 6.10 /CUMM) 2.93 L Hgb (14.0 - 18.0 G/DL) 7.1 *L Hct (42 - 52 %) 21.3 L MCV (80.0 - 94.0 FL) 72.9 L MCH (27.0 - 31.0 PG) 24.1 L RDW (11.5 - 14.5 %) 14.6 H Plt Count (130 - 400 /CUMM) 384 MPV (7.4 - 10.4 FL) 7.2 L Gran % (42.2 - 75.2 %) 83.8 H Lymphocytes % (20.5 - 51.1 %) 6.3 L Monocytes % (1.7 - 9.3 %) 9.2 Eosinophils % (0 - 5 %) 0.4 Basophils % (0.0 - 2.0 %) 0.3 Absolute Granulocytes (1.4 - 6.5 /CUMM) 10.1 H Segmented Neutrophils (42.2 - 75.2 %) 92 H Absolute Lymphocytes (1.2 - 3.4 /CUMM) 0.8 L Lymphocytes (20.5 - 51.1 %) 4 L Monocytes (1.7 - 9.3 %) 3 Absolute Monocytes (0.10 - 0.60 /CUMM) 1.1 H Absolute Eosinophils (0.0 - 0.7 /CUMM) 0.1 Basophils (0.0 - 2.0 %) 1 Absolute Basophils (0.0 - 0.2 /CUMM) 0 Platelet Estimate (ADEQUATE) ADEQUATE Polychromasia 1+ Poikilocytosis 1+ Anisocytosis 1+ Microcytic Cells 1+ Ovalocytes 1+ Elliptocytes FEW PUBS MCHC (33.0 - 37.0 G/DL) 33.1 Other Body Source Fld Total RBCs Counted (%) 100 Toxicology Serum Alcohol (<10 MG/DL) < 10.0 11/27 11/27 1840 1830 Chemistry Sodium (137 - 145 mmol/L) 135 L Potassium (3.5 - 5.1 mmol/L) 3.8 Chloride (98 - 107 mmol/L) 100 Carbon Dioxide (22 - 30 mmol/L) 23 Anion Gap (5 - 16) 12 BUN (9 - 20 mg/dL) 18 Creatinine (0.7 - 1.2 mg/dL) 0.8 Estimated GFR (>60 ml/min) > 60 BUN/Creatinine Ratio (7 - 25 %) 22.5 Glucose (65 - 99 mg/dL) 141 H Calcium (8.4 - 10.2 mg/dL) 8.3 L Total Bilirubin (0.2 - 1.3 mg/dL) 0.6 AST (17 - 59 U/L) 53 ALT (21 - 72 U/L) 53 Alkaline Phosphatase (< 127 U/L) 133 H Total Protein (6.3 - 8.2 g/dL) 6.2 L Albumin (3.5 - 5.0 g/dL) 3.1 L Globulin (1.9 - 4.2 gm/dL) 3.1 Albumin/Globulin Ratio (1.1 - 2.2 %) 1.0 L Coagulation PT (9.4 - 12.5 SEC) 53.0 *H INR (0.90 - 1.17) 5.13 *H Hematology CBC w Diff NO MAN DIFF REQ WBC (4.8 - 10.8 /CUMM) 14.6 H RBC (4.70 - 6.10 /CUMM) 3.94 L Hgb (14.0 - 18.0 G/DL) 9.3 L Hct (42 - 52 %) 28.5 L MCV (80.0 - 94.0 FL) 72.2 L MCH (27.0 - 31.0 PG) 23.6 L RDW (11.5 - 14.5 %) 14.3 Plt Count (130 - 400 /CUMM) 519 H MPV (7.4 - 10.4 FL) 7.1 L Gran % (42.2 - 75.2 %) 87.5 H Lymphocytes % (20.5 - 51.1 %) 4.4 L Monocytes % (1.7 - 9.3 %) 7.8 Eosinophils % (0 - 5 %) 0.2 Basophils % (0.0 - 2.0 %) 0.1 Absolute Granulocytes (1.4 - 6.5 /CUMM) 12.8 H Absolute Lymphocytes (1.2 - 3.4 /CUMM) 0.6 L Absolute Monocytes (0.10 - 0.60 /CUMM) 1.1 H Absolute Eosinophils (0.0 - 0.7 /CUMM) 0 Absolute Basophils (0.0 - 0.2 /CUMM) 0 PUBS MCHC (33.0 - 37.0 G/DL) 32.7 L Urines Urine Color Cancelled Urine Clarity Cancelled Urine pH Cancelled Ur Specific [place] Cancelled Urine Protein Cancelled Urine Ketones Cancelled Urine Nitrite Cancelled Urine Bilirubin Cancelled Urine Urobilinogen Cancelled Ur Leukocyte Esterase Cancelled Ur Microscopic Cancelled Urine Hemoglobin Cancelled Urine Glucose Cancelled Assessment/Plan Assessment/Plan A: POD #1 s/p exploratory laparotomy/colon resection/colostomy for transverse colonic mass; AVSS. NGT to suction. Plan: Await increase in bowel function. OOB and ambulate as tolerated. Minimize narcotics. D/C elizabeth catheter. Will be due to void today. Continue NGT to low wall suction. Will discuss with attending regarding when to restart anticoagulation for hx DVT /PEs (patient on coumadin). For now, continue Lovenox 40 mg sq daily. Core Measures/Miscellaneous Elziabeth Catheter Date In: 11/28/16 Venous Thromboembolism VTE Risk Factors: Acute medical illness, Age > 40, Previous VTE, Surgery VTE Contraindications: No Contraindications VTE Prophylaxis Ordered Inpt Mechanical (ALPS/TEDS) VTE Diagnosis: No VTE Type: NONE VTE Confirmed by (Test): NONE Beta Caroline Is Beta Caroline a Home Med? No Antibiotics Is Patient on Antibiotics? Yes If Yes: infection
[2016-11-29 11:22] LABS: ABSOLUTE BASOPHIL COUNT 0 /CUMM (0.0-0.2); ABSOLUTE EOSINOPHIL COUNT 0 /CUMM (0.0-0.7); ABSOLUTE LYMPH COUNT 0.5 /CUMM (1.2-3.4); BASOPHIL % 0.1 % (0.0-2.0); RED BLOOD CELL CT 2.87 /CUMM (4.70-6.10)
[2016-11-29 11:29] LABS: ABSOLUTE GRANULOCYTE CT 11.2 /CUMM (1.4-6.5); ABSOLUTE MONOCYTE COUNT 1.2 /CUMM (0.10-0.60); EOSINOPHIL % 0 % (0-5); HEMATOCRIT 20.9 % (42-52); MEAN CORPUSCULAR HGB 23.4 PG (27.0-31.0); MEAN CORPUSCULAR HGB CONC 32.1 G/DL (33.0-37.0); MEAN CORPUSCULAR VOLUME 72.9 FL (80.0-94.0); MEAN PLATELET VOLUME 7.8 FL (7.4-10.4); PLATELET COUNT 482 /CUMM (130-400); PT 14.8 SEC (9.4-12.5); RBC DISTRIBUTION WIDTH 14.5 % (11.5-14.5)
[2016-11-29 11:30] LABS: WHITE BLOOD CELL COUNT 12.9 /CUMM (4.8-10.8)
[2016-11-29 11:48] LABS: GRANULOCYTE % 86.6 % (42.2-75.2)
[2016-11-29 15:52] VITALS: BP 104/64
[2016-11-29 23:30] VITALS: BP 110/68
[2016-11-30 08:00] VITALS: BP 116/70
--- NOTE | 2016-11-30 08:12 | PN- General Surgery ---
See Addendum Subjective Subjective: 20.9Pt is now POD #2 s/p colon resection with colostomy for perforated transverse colon mass. From a surgical standpoint, pain is reasonably controlled with intermittent IV Dilaudid. Gabriel catheter and NG tube were removed yesterday. He is voiding spontaneously. There is no nausea, but also no bowel function as of yet. According to pt's nurse, he did eat some crackers yesterday, despite being advised not to. He received 2u PRBC's fr rr H/H 6.7/20.9. Per RN reports, patient has been very agitated over the past 24 hours, with occasional hallucinations. He has displayed some suicidal ideation and anger with family members, causing some of them to leave in tears last night. Ativan seems to calm him down, but might be making his hallucinations a little bit worse. Patient is aware of his mood issues, and states that his mood is better today. Objective Vital Signs and I&Os Vital Signs Date Time Temp Pulse Resp B/P Pulse O2 O2 Flow FiO2 Ox Delivery Rate 11/29 2330 98.3 83 20 110/68 95 Room Air 11/29 1552 98.3 88 18 104/64 95 Intake & Output 11/30 0800 11/30 0000 11/29 1600 11/29 0800 11/29 0000 11/28 1600 Intake Total 1100 754 47 9140 500 450 Output Total 325 250 400 500 825 200 Balance 775 470 -370 700 -325 250 Intake, Blood 700 Product Intake, IV 1100 1200 500 450 Intake, Oral 0 20 30 0 Number 0 Bowel Movements Output, 100 125 Gastric Drainage Output, Urine 325 250 400 400 700 200 Patient 215 lb Weight Physical Exam: Gen.: Patient is awake and alert. No acute distress, but he does appear slightly agitated, with continuous movements of his legs while lying in bed and conversing with me. Cardiac: Regular. Pulmonary: Lungs are clear with an occasional scattered expiratory wheeze, particularly on the left side. [Patient denies being a current smoker, but states that he has sinus problems and wakes up with chest congestion every day at home.] Abdomen: Soft and nondistended. No significant tenderness. The midline incision is clean, dry, and intact with cheikh in place. There is no significant drainage or erythema appreciated. Stoma is pink and viable. It is very edematous. There may be a small amount of air in the bag, but the wafer appears to have slightly lifted off of the skin so it is unclear whether the air is due to true bowel function. A few bowel sounds were heard. Extremities: Dressing on the left ankle is clean, dry, and intact. There is no significant edema or calf tenderness noted bilaterally. [Patient does admit to some minor soreness of his left lower leg, but unchanged versus baseline.] Assessment/Plan Assessment/Plan Pt is a 56 yo M with a hx of PE/DVT (on Coumadin prior to admission), who is now POD #2 s/p Munira's procedure for perforated colon mass. Plan: -RN will change ostomy wafer, to better determine whether patient is passing some air into the bag. If so, consider sips of clears. -Urine output is still borderline, so continue IVF at 125/hour. -Repeat CBC is pending this morning. Follow-up electrolytes and INR as well. -Pain control with intermittent dilaudid as needed. -Continue DVT prophylaxis with subcutaneous Lovenox. Continue to hold Coumadin until H&H is stable. -Avoid Ativan for now, as it seems to negatively impact pt's mood. Will request psych consult for SI and labile mood/behavior. -IV antibiotics, rocephin and flagyl, for peritonitis. -GI ppx with IV Protonix. -Ambulate, incentive spirometer. -Will discuss with attending. Core Measures/Miscellaneous Gabriel Catheter Date In: 11/28/16 Venous Thromboembolism VTE Risk Factors: Acute medical illness, Age > 40, Previous VTE, Surgery VTE Contraindications: No Contraindications VTE Prophylaxis Ordered Inpt Mechanical (ALPS/TEDS) VTE Diagnosis: No VTE Type: NONE VTE Confirmed by (Test): NONE Beta Caroline Is Beta Caroline a Home Med? No Antibiotics Is Patient on Antibiotics? Yes If Yes: infection
[2016-11-30 08:17] VITALS: BP 116/70
[2016-11-30 09:01] LABS: ABSOLUTE BASOPHIL COUNT 0 /CUMM (0.0-0.2); ABSOLUTE EOSINOPHIL COUNT 0.1 /CUMM (0.0-0.7); BASOPHIL % 0.4 % (0.0-2.0); EOSINOPHIL % 0.7 % (0-5); MEAN PLATELET VOLUME 7.9 FL (7.4-10.4); RED BLOOD CELL CT 3.42 /CUMM (4.70-6.10); WHITE BLOOD CELL COUNT 10.1 /CUMM (4.8-10.8)
[2016-11-30 09:02] LABS: PT 12.9 SEC (9.4-12.5)
[2016-11-30 09:13] LABS: ABSOLUTE GRANULOCYTE CT 7.4 /CUMM (1.4-6.5); ABSOLUTE LYMPH COUNT 1.5 /CUMM (1.2-3.4); ABSOLUTE MONOCYTE COUNT 1.1 /CUMM (0.10-0.60); GRANULOCYTE % 73.2 % (42.2-75.2); MEAN CORPUSCULAR VOLUME 75.7 FL (80.0-94.0); PLATELET COUNT 489 /CUMM (130-400); RBC DISTRIBUTION WIDTH 16.3 % (11.5-14.5)
[2016-11-30 09:17] LABS: HEMATOCRIT 25.9 % (42-52)
[2016-11-30 16:01] VITALS: BP 112/64
--- NOTE | 2016-11-30 19:28 | Cons- Psychiatry ---
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 Adams one month ago Assessment/Plan Impression: 56 y/o man w/ some past outpatient psychiatric hx, admitted for abdominal pain and dx w/ colon ca, consult called for bizarre behavior including suicidal gestures. As per discussion w/ primary team, Mr. Grande has been pointing his hand in shape of a gun to his head at times; has been angry and erratic w/ his young adult daughters; and has been making several suicidal statements. Was also found to be hallucinating, and this afternoon was found w/ tourniquet around his neck. Was given Ativan but found to be somewhat worse afterward. Patient was pleasant, well or overly engaged/familiar. He stated after I introduced myself, eval and at the end of the eval. He was odd, tangential, disorganized at times. no paranoia or other delusions elicited overall. He stated that he had been sleeping well overall; is glad that his diet is being advanced and was eating liquids w/o issue with me present. we spoke about his suicidal gestures/ statements - he gave a rambling discussion about how he often makes the gesture w/ the gun and that this is not a suicidal statement, that it is part of his personality. I tried to speak with him regarding other statements that staff were making about him being depressed and withdrawn, and he went into different tangents. He stated that he knew he was going to be diagnosed w. cancer due to a premonition of this. He was understandably upset about the diagnosis, but did not appear overly concerned, preoccupied with it; was future oriented and making convoluted/disorganized plans about the future. Other disorganized statements he made - spoke about the surgeon, that he saw the truth coming out of his eyes rather than him telling him any lie about his diagnosis; that he doesn't want to tell his family about the cancer b/c I don't want to make it a big TV issue like a Ameya Mullins episode and that he and his daughter have a show with mics and machines on the side of the road. While some of these may be reasonable statements in context, he continued in disorganized tangents, often did not answer the question asked, and had difficulty recalling the initial question. no active hallucinations, denied any past or current suicidal thoughts even when confronted about his gestures. He did state that he forgets things frequently, that he had a number of head injuries - 1 years old an oil bin hit him and he had 80 stitches, in the last several years he fell off a wall and other significant falls. Explained that other doctors had informed him his brain was squishy when he felll as a child and may have impacted his development. Past psych: stated that he had seen a psychiatrist prior to his divorce, to slow me down for some time but was unable to state exactly what they had recommended or what medications he was prescribed. stated that he had a self imposed outpatient treatment on his own after divorce. Stated that the medication he was given was too sedating and made him fall asleep at the machine at work so he stopped it. No past suicide attempts, no inpatient admissions. Unable to recall past meds. Substance: significant alcohol use, stated that he had even drinking since he was a young adult in binge periods but not daily. stated that he quit alcohol altogether 12 years ago. Had one 30 day rehab episode and one episode of outpatient rehavb. Denies any past withdrawal sx. State that he has no other drug use hx. 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 Hx DVT/PE was on coumadin; hx of left leg vascular surgery one month agoSocial: finished 12th grade, multiple past jobs; ; has a 17 and 23 year old daughter. lives w/ a woman roommate. collateral: Roommate Joseline [phone]; Friend Romel [phone]; friend Edvin [phone] - called all the #s, no answer for any of them. reviewed labs and relevant imaging, notes. Imaging on admission noted 8cm malignancy in transverse colon; peritoneal carcinomatosis, metastatis; other metastatic potential lesions noted i liver; perhaps in lungs. Basic labs reviewed, H/H low; wbc mildly elevated. MSE: overweight man, calm, pleasant, overly well familiar at times. No movement d/o noted, no tics or tremors. Speech is rapid to regular, normal volume. Mood is good and affect is reactive and full. Good eye contact overall, though at times distracted and looking elsewhere. Thought content positive some odd statements but no gross delusions elicited. Denied thoughts of wanting to kill himseIf or anyone else, but was unable to provide explanation to his past statements to staff, he did state that the gestures were part of his regular hand gestures when he was irritated. Thought process tangential, disorganized, doesn't always answer question asked; but redirect able. Insight impaired, judgment fair. Cognition - oriented x3, to current president and last 3 presidents; recalled 3/3 fords after 5 minutes. counting back from 7s - 93, 86, 69, 62, 53. Overall formal testing not terrible; but did ask questions over during evaluation, inattentive and distracted. Impression: 56 y/o man w/ some outpatient psychiatric hx, with new dx of colon ca, w/ colostomy bag; presented w/ hallucinations, disorganized behavior. His sx may be consistent w/ a low grade hypomanic/psychotic episode vs. close to his baseline if he has an underlying mild mood d/o exacerbated by recent dx (vs. eccentric traits) vs. a cognitive d/o (either after multiple TBI or worsening dementia). Unclear presentation at this time, and w/o collateral would not start standing medication yet (he would likely also be hesitant). his suicidal gestures may be more of a behavioral/impulse control sx rather than severe depression as he does not show neurovegetative signs/sx of severe depression today and some depressed mood is normal w/ his current dx. Rec: - continue 1:1 for suicidal gestures and disorganized behavior - PRN haldol q6hrs for agitation/aggression oral, if refuses can give IM - re-orient and redirect by sitters - Psychiatry will follow up - called the 3#s he gave me but no one answered; call again tmr, also family has been visiting, can contact them for collateral as well. - may need more thorough dementia workup based on family collateral and determination of his baseline mental status. -psychiatry to be involved before any d/c planning or if he wants to leave [facility] in the next several days
[2016-11-30 21:57] LABS: PTT 27 SEC (25-37)
[2016-11-30 23:35] VITALS: BP 112/65
[2016-12-01 06:16] LABS: PT 13.6 SEC (9.4-12.5); PTT 34 SEC (25-37)
--- NOTE | 2016-12-01 07:53 | PN- General Surgery ---
See Addendum Subjective Subjective: NAEO. No new c/o. Patient states that pain is controlled with IV dilaudid. Tolerating clear liquid diet without n/v. No stool in ostomy bag overnight. Patient still has a 1:1 sitter for comments regarding a desire to commit suicide. Patient states he feels happy this morning and that he is fam to have the outcome he did with this hospital admission. Denies CP/SOB. Objective Vital Signs and I&Os Vital Signs Date Time Temp Pulse Resp B/P Pulse O2 O2 Flow FiO2 Ox Delivery Rate 11/30 2335 98.1 71 18 112/65 96 Room Air 11/30 1601 98.0 80 19 112/64 98 11/30 1230 Room Air 11/30 0817 98.0 88 16 116/70 95 Room Air 11/30 0800 98.0 88 16 116/70 Intake & Output 12/01 0800 12/01 0000 11/30 1600 11/30 0800 11/30 0000 11/29 1600 Intake Total 5766 465 1038 1100 720 30 Output Total 700 300 925 325 250 400 Balance 281 909 0162 775 470 -370 Intake, Blood 700 Product Intake, IV 5356 460 2525 1100 Intake, Oral 1380 0 20 30 Output, Stool 10 Output, Urine 700 300 915 325 250 400 Patient 202 lb 215 lb Weight Physical Exam: General: NAD, comfortable, A&Ox3 Chest: CTAB. RRR. Abdomen: soft, mildly distended. Appropriately tender to palpation. Midline incision intact with cheikh without surrounding erythema, swelling, signs of infection. Right-sided stoma ink and viable with ostomy appliance in place with small amount of mucus drainage and small amount of gas in bag. +Bowel sounds x4 quadrants Ext: No calve swelling/TTP, neurovascularly intact bilateral lower extremities Current Medications: Current Medications Sig/Shane Start time Last Medication Dose Route Stop Time Status Admin Acetaminophen 1,000 MG Q8P PRN 11/28 1800 AC N/A 1 UNIT IV Ceftriaxone Sodium 1,000 MG DAILY@11/28 AC 11/30 IV 2148 Cyanocobalamin/ 1 BAG DAILY@11/29 DC 11/29 Thiamine/Pyridoxine IV 2225 Sodium Chloride 1,000 ML Dextrose/Sodium 1,000 ML Q13H 11/30 1330 AC 01/30 Chloride IV 0426 Enoxaparin Sodium 40 MG 1600 11/29 1600 DC 11/29 SC 1632 Haloperidol 1 MG Q6 PRN 11/30 2000 AC PO Haloperidol 1 MG Q6P PRN 11/30 1800 AC IM Heparin Sodium 25,000 UNIT Q24H 11/30 1330 AC 11/30 (Porcine) IV 1447 Sodium Chloride 500 ML Hydromorphone HCl 1 MG Q4P PRN 11/30 1315 AC 12/01 IV 0425 Hydromorphone HCl 1 MG Q2-3 HRS NEEDED.. 11/28 1230 DC 11/30 IV 1020 Lorazepam 1 MG Q8P PRN 11/29 0615 DC 11/29 IV 1727 Metronidazole 500 MG Q8 11/28 1400 AC 12/01 N/A 1 UNIT IV 0425 Ondansetron HCl 4 MG Q6P PRN 11/28 1230 AC IV Oxycodone/ 1 TAB Q4P PRN 11/30 1300 AC Acetaminophen PO Oxycodone/ 2 TAB Q4P PRN 11/30 1300 AC 12/01 Acetaminophen PO 0615 Pantoprazole Sodium 40 MG DAILY 11/29 1000 AC 11/30 IV 1347 Potassium Chloride 20 MEQ Q13H 11/30 1315 DC Dextrose/Sodium 1,000 ML IV Chloride Potassium Chloride 20 MEQ Q8H 11/28 1230 DC 11/29 Dextrose/Sodium 1,000 ML IV 0935 Chloride Warfarin Sodium 7.5 MG COUMADIN 1700 ONE 11/30 1700 DC 11/30 PO 11/30 1701 1605 Results Last 48 Hours of Labs: Laboratory Tests 12/01 12/01 11/30 0515 0515 2100 Chemistry Sodium (137 - 145 mmol/L) 138 Potassium (3.5 - 5.1 mmol/L) 4.3 Chloride (98 - 107 mmol/L) 106 Carbon Dioxide (22 - 30 mmol/L) 24 Anion Gap (5 - 16) 8 BUN (9 - 20 mg/dL) 12 Creatinine (0.7 - 1.2 mg/dL) 0.7 Estimated GFR (>60 ml/min) > 60 BUN/Creatinine Ratio (7 - 25 %) 17.1 Coagulation PT (9.4 - 12.5 SEC) Cancelled 13.6 H INR (0.90 - 1.17) Cancelled 1.30 H APTT (25 - 37 SEC) 34 27 Hematology CBC w Diff Pending WBC Pending RBC Pending Hgb Pending Hct Pending MCV Pending MCH Pending RDW Pending Plt Count Pending MPV Pending PUBS MCHC Pending 11/30 11/29 0632 1025 Chemistry Sodium (137 - 145 mmol/L) 143 143 Potassium (3.5 - 5.1 mmol/L) 4.6 4.4 Chloride (98 - 107 mmol/L) 110 H 109 H Carbon Dioxide (22 - 30 mmol/L) 25 24 Anion Gap (5 - 16) 7 10 BUN (9 - 20 mg/dL) 17 14 Creatinine (0.7 - 1.2 mg/dL) 0.7 0.8 Estimated GFR (>60 ml/min) > 60 > 60 BUN/Creatinine Ratio (7 - 25 %) 24.3 17.5 Phosphorus (2.5 - 4.5 mg/dL) 3.1 2.6 Magnesium (1.6 - 2.3 mg/dL) 2.4 H 2.2 Coagulation PT (9.4 - 12.5 SEC) 12.9 H 14.8 H INR (0.90 - 1.17) 1.23 H 1.41 H Hematology CBC w Diff NO MAN DIFF REQ NO MAN DIFF REQ WBC (4.8 - 10.8 /CUMM) 10.1 12.9 H RBC (4.70 - 6.10 /CUMM) 3.42 L 2.87 L Hgb (14.0 - 18.0 G/DL) 8.5 L 6.7 *L Hct (42 - 52 %) 25.9 L 20.9 L MCV (80.0 - 94.0 FL) 75.7 L 72.9 L MCH (27.0 - 31.0 PG) 25.0 L 23.4 L RDW (11.5 - 14.5 %) 16.3 H 14.5 Plt Count (130 - 400 /CUMM) 489 H 482 H MPV (7.4 - 10.4 FL) 7.9 7.8 Gran % (42.2 - 75.2 %) 73.2 86.6 H Lymphocytes % (20.5 - 51.1 %) 15.2 L 3.9 L Monocytes % (1.7 - 9.3 %) 10.5 H 9.4 H Eosinophils % (0 - 5 %) 0.7 0 Basophils % (0.0 - 2.0 %) 0.4 0.1 Absolute Granulocytes (1.4 - 6.5 /CUMM) 7.4 H 11.2 H Absolute Lymphocytes (1.2 - 3.4 /CUMM) 1.5 0.5 L Absolute Monocytes (0.10 - 0.60 /CUMM) 1.1 H 1.2 H Absolute Eosinophils (0.0 - 0.7 /CUMM) 0.1 0 Absolute Basophils (0.0 - 0.2 /CUMM) 0 0 PUBS MCHC (33.0 - 37.0 G/DL) 33.0 32.1 L Assessment/Plan Assessment/Plan 56yo M POD#3 s/p resection of transverse colon and colostomy due to perforated transverse colon mass. AVSS. Patient stable. - Pain control - PRN Zofran - Continue clear liquid diet for now - dc ivf - f/u a.m. labs - OOB as desired - Continue 1:1 sitter, f/u psych recs - continue hep gtt - dose coumadin per INR - continue abx - dc planning - will d/w attending Core Measures/Miscellaneous Gabriel Catheter Date In: 11/28/16 Venous Thromboembolism VTE Risk Factors: Acute medical illness, Age > 40, Previous VTE, Surgery VTE Contraindications: No Contraindications VTE Prophylaxis Ordered Inpt Mechanical (ALPS/TEDS) VTE Diagnosis: No VTE Type: NONE VTE Confirmed by (Test): NONE Beta Caroline Is Beta Caroline a Home Med? No Antibiotics Is Patient on Antibiotics? Yes If Yes: infection
[2016-12-01 07:56] LABS: ABSOLUTE BASOPHIL COUNT 0 /CUMM (0.0-0.2); ABSOLUTE EOSINOPHIL COUNT 0.5 /CUMM (0.0-0.7); ABSOLUTE LYMPH COUNT 1.8 /CUMM (1.2-3.4); ABSOLUTE MONOCYTE COUNT 0.9 /CUMM (0.10-0.60); BASOPHIL % 0.5 % (0.0-2.0); EOSINOPHIL % 6.4 % (0-5); GRANULOCYTE % 60.4 % (42.2-75.2); HEMATOCRIT 24.5 % (42-52); MEAN CORPUSCULAR HGB 24.6 PG (27.0-31.0); MEAN CORPUSCULAR HGB CONC 32.9 G/DL (33.0-37.0); MEAN CORPUSCULAR VOLUME 74.7 FL (80.0-94.0); MEAN PLATELET VOLUME 7.5 FL (7.4-10.4); PLATELET COUNT 559 /CUMM (130-400); RBC DISTRIBUTION WIDTH 16.3 % (11.5-14.5); RED BLOOD CELL CT 3.28 /CUMM (4.70-6.10); WHITE BLOOD CELL COUNT 8.4 /CUMM (4.8-10.8)
[2016-12-01 08:51] VITALS: BP 100/54
[2016-12-01 15:02] LABS: PTT 59 SEC (25-37)
[2016-12-01 15:53] VITALS: BP 145/78
--- NOTE | 2016-12-01 17:25 | Cons- Wound Care ---
General Information and HPI Consulting Request Date of Consult: 12/01/16 Requested By: SUZY JOHNS,MINOO De La Garza Reason for Consult: Chronic right lateral ankle venous stasis ulcer present on admission History of Present Illness: Patient is 56-year-old gentleman admitted with abdominal pain found to have a perforated transverse colon Ligman C status post surgery. He's had a long- standing chronic right lower extremity venous stasis ulcer. He said treatments including compression Unna boots and vein closure. Recently his wound is been left open and dry. Denies knowledge of comp getting peripheral vascular disease Allergies/Medications Allergies: Coded Allergies: NO KNOWN ALLERGIES (11/27/16) Home Med List: Warfarin Sodium (Coumadin) 10 MG TABLET 1 TAB PO DAILY PE/DVT (Reported) Review of Systems Review of Systems: He denies claudication Past History Travel History Traveled to [place] past 21 day No Medical History Blood Transfusion Hx: Yes Neurological: NONE EENT: NONE Cardiovascular: NONE Respiratory: pulmonary embolism Gastrointestinal: NONE Hepatic: NONE Renal: NONE Musculoskeletal: FINGER AMPUTATION Psychiatric: NONE Endocrine: NONE Blood Disorders: DVT Cancer(s): NONE 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 Adams one month ago Psychosocial History Where Do You Live? Home Services at Home: None Smoking Status: Former Smoker ETOH Use: denies use Illicit Drug Use: denies illicit drug use Functional Ability ADLs Independent: dressing, eating, toileting, bathing. Ambulation: independent IADLs Independent: shopping, housework, finances, food prep, telephone, transportation , medication admin. Employment History Employment: Disability Exam & Diagnostic Data Vital Signs and I&O Vital Signs Result Date Time Pulse Ox 94 12/01 1553 B/P 145/78 12/01 1553 Temp 98.8 12/01 1553 Pulse 72 12/01 1553 Resp 20 12/01 1553 O2 Delivery Room Air 11/30 2335 O2 Flow Rate Room Air 11/28 1439 Intake & Output 12/01 0000 11/30 1600 11/30 0800 Intake Total 425 2480 1100 Output Total 300 925 325 Balance 125 1555 775 Intake, IV 425 1100 1100 Intake, Oral 1380 0 Output, Stool 10 Output, Urine 300 915 325 Patient 202 lb Weight Exam of the right lower extremity shows there to be a approximately 1.5 x 1 cm chronic fibrotic ulcer with fibrotic periwound tissue there is no undermining sinus tracking or exposed bone is no significant periwound erythema distal pulses are palpable Assessment/Plan Impression/Plan: He is a [age]-year-old gentleman venous insufficiency as a chronic nonhealing right lower extremity venous stasis ulcer present on admission. The wound bed appears overly dry. There is no significant edema likely related to bedrest. Recommend leg elevation wound cleansing and moist wound care with Xeroform. Patient can be followed in the wound center for further evaluation of venous reflux and adequacy of vein stripping Consult Acknowledgment - Thank you for your consult request.
[2016-12-01 22:28] LABS: PTT 57 SEC (25-37)
[2016-12-02] VITALS: BP 112/62
[2016-12-02 00:23] VITALS: BP 112/62
[2016-12-02 04:55] LABS: PTT > 120 SEC (25-37)
[2016-12-02 07:51] VITALS: BP 120/70
--- NOTE | 2016-12-02 08:11 | PN- General Surgery ---
See Addendum Subjective Subjective: Patient reporting pain when mobile but feels it is controlled when given IV dilaudid. Is requesting more frequent dosing as he states he does not like to take po percocet. States that he is feeling as though he has increasing intestinal motility. Denies nausea and vomitting, has been tolerating clear liquid diet. Denies chest pain, shortness of breath and difficulty breathing. 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 Objective Vital Signs and I&Os Vital Signs Date Time Temp Pulse Resp B/P Pulse O2 O2 Flow FiO2 Ox Delivery Rate 12/02 0751 98.0 79 20 120/70 95 Room Air 12/02 0023 98.1 62 20 112/62 95 Room Air 12/02 0000 98.1 62 20 112/62 12/01 1553 98.8 72 20 145/78 94 12/01 0851 98.5 62 20 100/54 93 Intake & Output 12/02 1600 12/02 0800 12/02 0000 12/01 1600 12/01 0800 12/01 0000 Intake Total 482 1282.3 1824.8 1000 425 Output Total 945 631 6166 700 300 Balance -28 677.3 624.8 300 125 Intake, IV 482 332.3 324.8 1000 425 Intake, Oral 950 1500 Output, Stool 10 5 Output, Urine 724 180 9834 700 300 Physical Exam: General: Alert and oriented x3, no acute distress, no mention of suicidial ideation at the present time Cardiac: RRR, s1s2 Pulmonary: C T A bilaterally Abdomen: Softly distended, no bowel sounds auscultated. Adenike-incisional tenderness. No excessive surrounding erythema. Skin edges well approximated, cheikh intact, no drainage. Stoma pink and edematous, viable. Small amout of serous drainage noted in bag, small amout of air in bag. Extremities: Moves all extremities, distal sensation intact. Skin warm and well perfused. Bilateral calves soft and nontender. Assessment/Plan Assessment/Plan 56yo M POD#3 s/p resection of transverse colon and colostomy due to perforated transverse colon mass. AVSS. Patient stable. - Pain control - PRN Zofran - Continue clear liquid diet for now - dc ivf - f/u a.m. labs - OOB as desired - Continue 1:1 sitter, f/u psych recs - continue hep gtt - dose coumadin per INR - continue abx - dc planning - will d/w attending Core Measures/Miscellaneous Gabriel Catheter Date In: 11/28/16 Venous Thromboembolism VTE Risk Factors: Acute medical illness, Age > 40, Previous VTE, Surgery VTE Contraindications: No Contraindications VTE Prophylaxis Ordered Inpt Mechanical (ALPS/TEDS) VTE Diagnosis: No VTE Type: NONE VTE Confirmed by (Test): NONE Beta Caroline Is Beta Caroline a Home Med? No Antibiotics Is Patient on Antibiotics? Yes If Yes: infection
[2016-12-02 08:13] LABS: ABSOLUTE BASOPHIL COUNT 0 /CUMM (0.0-0.2); ABSOLUTE EOSINOPHIL COUNT 0.6 /CUMM (0.0-0.7); ABSOLUTE LYMPH COUNT 1.3 /CUMM (1.2-3.4); ABSOLUTE MONOCYTE COUNT 0.7 /CUMM (0.10-0.60); BASOPHIL % 0.4 % (0.0-2.0); EOSINOPHIL % 8.1 % (0-5); GRANULOCYTE % 65.4 % (42.2-75.2); MEAN CORPUSCULAR HGB 24.3 PG (27.0-31.0); MEAN CORPUSCULAR HGB CONC 32.3 G/DL (33.0-37.0); MEAN CORPUSCULAR VOLUME 75.3 FL (80.0-94.0); MEAN PLATELET VOLUME 7.3 FL (7.4-10.4); PLATELET COUNT 641 /CUMM (130-400); RBC DISTRIBUTION WIDTH 17.4 % (11.5-14.5); RED BLOOD CELL CT 3.45 /CUMM (4.70-6.10); WHITE BLOOD CELL COUNT 7.6 /CUMM (4.8-10.8)
[2016-12-02 12:06] LABS: PTT 52 SEC (25-37)
--- NOTE | 2016-12-02 14:23 | PN- Psychiatry ---
Assessment/Plan Impression: Identifying Info: 56-year-old male status post colon resection and colostomy due to colon CA. Referred to psychiatry for evaluation for bizarre behavior, suicidal statements and gestures. Reevaluated today on . Initially patient presented as disorganized, and tangential and actively hallucinating postsurgery. 1:[address] SUBJECTIVE Today the patient reports that he did previously have some suicidal thoughts. He was worried about a painful due to his cancer diagnosis. 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 He is able to contract for safety in the hospital and adamantly denies any recent suicidal ideation. Brief ROS Gait: Did not assess Sleep: Adequate Appetite: Did not assess OBJECTIVE Mental Status Exam Presentation/Appearance: Cooperative with evaluation. Hospital garb. Calm. Orientation: X3 Sensorium: Awake and alert Eye contact: Appropriate Affect: Full range congruent with stated mood Mood: Somewhat elevated Depression: Denies Anxiety: Denies Thought Content: - Denies SI/HI, AH/VH, PI. States and also believes they will not kill themselves. - Denies Hopeless/Helpless Thoughts Thought Process: Circumstantial at times Speech: [place] tone and rate Judgment:Fair Insight: Fair Cognition: Memory: Endorses deficits Attention/Concentration: Grossly intact Prior nursing reported the patient has had no issues today and there is no concern with the safety of present. In terms of major risk factors for suicide patient has no history of suicide attempts and no family history of suicide attempt, he has strong social supports , and lives with his supportive friend/significant other. He does have one friend who committed suicide approximately 20 years ago. ASSESSMENT 56-year-old male presents with acute confusion and bizarre behavior and suicidal ideation status post colon CA diagnosis and resection surgery. At that time he had recently taken opiates and benzodiazepines. At present he recanted suicidal statements and reports hope for the future. He does appear to be somewhat odd and elevated however these may be baseline personality traits. Differential diagnosis Rule out unspecified bipolar spectrum disorder Delirium due to multiple etiologies, resolved Alcohol use disorder, severe, in sustained remission (12 years) Suggestion: 1. Please discontinue one-to-one sitter, patient is not a threat to self or others or gravely disabled at this time. 2. Patient is not interested in outpatient psychiatry at this time but is receptive to taking contact information for [facility] outpatient services. Provided with a card with information to schedule evaluation he feels he needs extra support. 3. If [facility] recommend follow-up with perinatal social worker and support groups. 4. Please discontinue haloperidol. Thank you for including psychiatry in this case we'll continue to follow. Luis Alberto Grullon, ANA, pager [phone] Subjective Subjective: .
[2016-12-02 15:47] VITALS: BP 96/52
[2016-12-02 19:58] LABS: PTT 110 SEC (25-37)
[2016-12-02 22:33] VITALS: BP 110/60
[2016-12-03 02:29] LABS: PTT 66 SEC (25-37)
--- NOTE | 2016-12-03 07:25 | PN- General Surgery ---
LORIE SILVA,SIM 12/03/16 0713: Subjective Subjective: 56 YO male, eager for food, ambulating, passing sonja in colostomy bag, passing stool. no fever, no nv, pain is controled. feeling "much better". tolerating fulls Objective Vital Signs and I&Os Vital Signs Date Time Temp Pulse Resp B/P Pulse O2 O2 Flow FiO2 Ox Delivery Rate 12/02 2233 98.1 79 20 110/60 95 Room Air 12/02 1547 98.1 86 19 96/52 95 12/02 0751 98.0 79 20 120/70 95 Room Air Intake & Output 12/03 0800 12/03 0000 12/02 1600 12/02 0800 12/02 0000 12/01 1600 Intake Total 707.2 385.4 109 662 9096.3 1824.8 Output Total 2 26 807 093 4968 Balance 705.2 359.4 950 -28 677.3 624.8 Intake, IV 467.2 145.4 482 332.3 324.8 Intake, Oral 240 240 960 071 1328 Output, Stool 2 26 10 5 Output, Urine 252 829 3403 Physical Exam: GEN: wdwn, AOx3 in NAD HEENT: wnl Heart: RRR, no murmurs Lungs: CTA B Abd: minimally distended, soft, non tender. colostomy stoma is pink and edematous, gas and brown stool, semiformed in the bag. midline incision approximated with cheikh. BS normal. Mid and distal portion of incision there is trace erythema and induration. scan s/s drainage on gown. EXT:venodynes in place, B calf soft, non tender, no edema. NEURO: wnl Current Medications: Current Medications Sig/Shane Start time Last Medication Dose Route Stop Time Status Admin Acetaminophen 1,000 MG Q8P PRN 11/28 1800 AC N/A 1 UNIT IV Ceftriaxone Sodium 1,000 MG DAILY@0 11/28 2130 AC 12/02 IV 2152 Haloperidol 1 MG Q6 PRN 11/30 2000 AC PO Haloperidol 1 MG Q6P PRN 11/30 1800 AC IM Heparin Sodium 25,000 UNIT Q24H 11/30 1330 AC 12/02 (Porcine) IV 2105 Sodium Chloride 500 ML Hydromorphone HCl 1 MG Q4P PRN 01/29 1315 AC 12/03 IV 0556 Metoclopramide HCl 10 MG .STK-MED ONE 12/02 1807 DC IM 12/02 1808 Metronidazole 500 MG Q8 12/02 2200 AC 12/03 N/A 1 UNIT IV 0534 Metronidazole 500 MG Q8 11/28 1400 DC 12/02 N/A 1 UNIT IV 1433 Ondansetron HCl 4 MG Q6P PRN 11/28 1230 AC IV Oxycodone/ 1 TAB Q4P PRN 11/30 1300 AC Acetaminophen PO Oxycodone/ 2 TAB Q4P PRN 11/30 1300 AC 12/01 Acetaminophen PO 0615 Pantoprazole Sodium 40 MG DAILY 11/29 1000 AC 12/02 IV 0954 Results Last 48 Hours of Labs: Laboratory Tests 12/03 12/02 12/02 12/02 0200 1855 1113 0630 Chemistry Sodium (137 - 145 mmol/L) 137 Potassium (3.5 - 5.1 mmol/L) 4.3 Chloride (98 - 107 mmol/L) 106 Carbon Dioxide (22 - 30 mmol/L) 25 Anion Gap (5 - 16) 5 BUN (9 - 20 mg/dL) 8 L Creatinine (0.7 - 1.2 mg/dL) 0.7 Estimated GFR (>60 ml/min) > 60 BUN/Creatinine Ratio (7 - 25 %) 11.4 Coagulation APTT (25 - 37 SEC) 66 H 110 *H 52 H Hematology CBC w Diff NO MAN DIFF REQ WBC (4.8 - 10.8 /CUMM) 7.6 RBC (4.70 - 6.10 /CUMM) 3.45 L Hgb (14.0 - 18.0 G/DL) 8.4 L Hct (42 - 52 %) 26.0 L MCV (80.0 - 94.0 FL) 75.3 L MCH (27.0 - 31.0 PG) 24.3 L RDW (11.5 - 14.5 %) 17.4 H Plt Count (130 - 400 /CUMM) 641 H MPV (7.4 - 10.4 FL) 7.3 L Gran % (42.2 - 75.2 %) 65.4 Lymphocytes % (20.5 - 51.1 %) 17.4 L Monocytes % (1.7 - 9.3 %) 8.7 Eosinophils % (0 - 5 %) 8.1 H Basophils % (0.0 - 2.0 %) 0.4 Absolute Granulocytes (1.4 - 6.5 /CUMM) 5.0 Absolute Lymphocytes (1.2 - 3.4 /CUMM) 1.3 Absolute Monocytes (0.10 - 0.60 /CUMM) 0.7 H Absolute Eosinophils (0.0 - 0.7 /CUMM) 0.6 Absolute Basophils (0.0 - 0.2 /CUMM) 0 PUBS MCHC (33.0 - 37.0 G/DL) 32.3 L 12/02 12/01 12/01 0422 2200 1432 Coagulation APTT (25 - 37 SEC) > 120 *H 57 H 59 H Assessment/Plan Assessment/Plan 56yo M POD#5 s/p resection of transverse colon and colostomy due to perforated transverse colon mass. AVSS. Patient stable. - Pain control - PRN Zofran - Continue Fulls diet for now, consider advancing to REG today. - f/u a.m. today, CBC for thrombocytopenia, INR check., adjust coumadin accordingly - OOB as desired - continue hep gtt - dose coumadin per INR - continue abx - dc planning - will d/w attending - ? staple removal at distal incision to allow for more drainage, will DW Dr Almonte. Core Measures/Miscellaneous Gabriel Catheter Date In: 11/28/16 Venous Thromboembolism VTE Risk Factors: Acute medical illness, Age > 40, Previous VTE, Surgery VTE Contraindications: No Contraindications VTE Prophylaxis Ordered Inpt Mechanical (ALPS/TEDS) VTE Diagnosis: No VTE Type: NONE VTE Confirmed by (Test): NONE Beta Caroline Is Beta Caroline a Home Med? No Antibiotics Is Patient on Antibiotics? Yes If Yes: infection MINOO ALMONTE MD 12/03/16 1125: Attending MD Review Statement Attending Statement Attending MD Statement: examined this patient Attending Assessment/Plan: as above. advance diet. continue coumadin. needs home nursing for stoma and daily packing change.
[2016-12-03 08:39] VITALS: BP 110/60
[2016-12-03 09:06] LABS: ABSOLUTE BASOPHIL COUNT 0.1 /CUMM (0.0-0.2); ABSOLUTE EOSINOPHIL COUNT 0.6 /CUMM (0.0-0.7); ABSOLUTE GRANULOCYTE CT 6.8 /CUMM (1.4-6.5); ABSOLUTE LYMPH COUNT 1.6 /CUMM (1.2-3.4); ABSOLUTE MONOCYTE COUNT 0.8 /CUMM (0.10-0.60); BASOPHIL % 0.7 % (0.0-2.0); EOSINOPHIL % 5.7 % (0-5); GRANULOCYTE % 69.6 % (42.2-75.2); HEMATOCRIT 27.8 % (42-52); MEAN CORPUSCULAR HGB 24.4 PG (27.0-31.0); MEAN CORPUSCULAR HGB CONC 32.5 G/DL (33.0-37.0); MEAN CORPUSCULAR VOLUME 74.9 FL (80.0-94.0); MEAN PLATELET VOLUME 7.5 FL (7.4-10.4); PLATELET COUNT 650 /CUMM (130-400); RBC DISTRIBUTION WIDTH 16.7 % (11.5-14.5); RED BLOOD CELL CT 3.72 /CUMM (4.70-6.10); WHITE BLOOD CELL COUNT 9.8 /CUMM (4.8-10.8)
[2016-12-03 09:11] LABS: PT 15.7 SEC (9.4-12.5)
[2016-12-03 16:20] LABS: PTT 108 SEC (25-37)
[2016-12-03 23:31] LABS: PTT 72 SEC (25-37)
[2016-12-04 00:19] VITALS: BP 112/62
[2016-12-04 07:28] VITALS: BP 138/90
[2016-12-04 08:05] LABS: ABSOLUTE BASOPHIL COUNT 0.1 /CUMM (0.0-0.2); ABSOLUTE EOSINOPHIL COUNT 0.6 /CUMM (0.0-0.7); ABSOLUTE GRANULOCYTE CT 9.3 /CUMM (1.4-6.5); ABSOLUTE LYMPH COUNT 1.6 /CUMM (1.2-3.4); ABSOLUTE MONOCYTE COUNT 1.3 /CUMM (0.10-0.60); BASOPHIL % 0.5 % (0.0-2.0); EOSINOPHIL % 4.6 % (0-5); GRANULOCYTE % 72.2 % (42.2-75.2); HEMATOCRIT 27.2 % (42-52); MEAN CORPUSCULAR HGB 24.5 PG (27.0-31.0); MEAN CORPUSCULAR HGB CONC 32.2 G/DL (33.0-37.0); MEAN CORPUSCULAR VOLUME 75.9 FL (80.0-94.0); MEAN PLATELET VOLUME 7.1 FL (7.4-10.4); PLATELET COUNT 620 /CUMM (130-400); RBC DISTRIBUTION WIDTH 17.8 % (11.5-14.5); RED BLOOD CELL CT 3.58 /CUMM (4.70-6.10); WHITE BLOOD CELL COUNT 12.9 /CUMM (4.8-10.8)
[2016-12-04 09:04] LABS: PT 16.9 SEC (9.4-12.5)
--- NOTE | 2016-12-04 11:24 | PN- General Surgery ---
Subjective Subjective: NAEO. Patient without new c/o. Pain controlled. Tolerating diet without nausea vomiting. Colostomy putting out loose stool and gas. Out of bed and ambulating. Patient without suicide or other desire to harm himself. Denies chest pain or shortness of breath. Objective Vital Signs and I&Os Vital Signs Date Time Temp Pulse Resp B/P Pulse O2 O2 Flow FiO2 Ox Delivery Rate 12/04 0728 97.7 90 20 138/90 97 Room Air 12/04 0019 99.8 86 20 112/62 96 Room Air Intake & Output 12/04 1600 12/04 0800 12/04 0000 12/03 1600 12/03 0800 12/03 0000 Intake Total 338.4 600 1600 707.2 385.4 Output Total 988 708 1861 2 26 Balance -611.6 500 0 705.2 359.4 Intake, IV 338.4 400 467.2 145.4 Intake, Oral 600 1200 240 240 Output, Stool 50 100 100 2 26 Output, Urine 900 1500 Physical Exam: General: NAD, comfortable, A&Ox3 Chest: CTAB. RRR Abdomen: soft, nondistended. Midline incision with packing inferior portion with serosanguineous drainage, otherwise, intact with cheikh without erythema, swelling, signs of infection. Stoma pink and viable, colostomy with loose stool and gas in bag. +Bowel sounds x4 quadrants Ext: No calve swelling/TTP, neurovascularly intact bilateral lower extremities Current Medications: Current Medications Sig/Shane Start time Last Medication Dose Route Stop Time Status Admin Acetaminophen 1,000 MG Q8P PRN 11/28 1800 AC N/A 1 UNIT IV Ceftriaxone Sodium 1,000 MG DAILY@11/28 2130 AC 12/03 IV 2125 Haloperidol 1 MG Q6 PRN 11/30 2000 AC PO Haloperidol 1 MG Q6P PRN 11/30 1800 AC IM Heparin Sodium 25,000 UNIT Q24H 11/30 1330 AC 12/03 (Porcine) IV 2344 Sodium Chloride 500 ML Hydromorphone HCl 1 MG Q4P PRN 11/30 1315 AC 12/04 IV 1011 Metronidazole 500 MG Q8 12/02 2200 AC 12/04 N/A 1 UNIT IV 0539 Ondansetron HCl 4 MG Q6P PRN 11/28 1230 AC IV Oxycodone/ 1 TAB Q4P PRN 11/30 1300 AC Acetaminophen PO Oxycodone/ 2 TAB Q4P PRN 11/30 1300 AC 12/04 Acetaminophen PO 0708 Pantoprazole Sodium 40 MG DAILY 11/29 1000 AC 12/04 IV 0809 Patient Medication 1 ED .STK-MED ONE 12/03 1359 DC Teaching ED 12/03 1400 Warfarin Sodium 5 MG COUMADIN 1700 ONE 12/04 1700 UNVr PO 12/04 1701 Warfarin Sodium 10 MG COUMADIN 170 ONE 12/03 1700 DC 12/03 PO 12/03 1701 1745 Results Last 48 Hours of Labs: Laboratory Tests 12/04 12/04 12/04 1115 0810 0625 Coagulation PT (9.4 - 12.5 SEC) 16.9 H INR (0.90 - 1.17) 1.62 H APTT Pending Hematology CBC w Diff NO MAN DIFF REQ WBC (4.8 - 10.8 /CUMM) 12.9 H RBC (4.70 - 6.10 /CUMM) 3.58 L Hgb (14.0 - 18.0 G/DL) 8.8 L Hct (42 - 52 %) 27.2 L MCV (80.0 - 94.0 FL) 75.9 L MCH (27.0 - 31.0 PG) 24.5 L RDW (11.5 - 14.5 %) 17.8 H Plt Count (130 - 400 /CUMM) 620 H MPV (7.4 - 10.4 FL) 7.1 L Gran % (42.2 - 75.2 %) 72.2 Lymphocytes % (20.5 - 51.1 %) 12.3 L Monocytes % (1.7 - 9.3 %) 10.4 H Eosinophils % (0 - 5 %) 4.6 Basophils % (0.0 - 2.0 %) 0.5 Absolute Granulocytes (1.4 - 6.5 /CUMM) 9.3 H Absolute Lymphocytes (1.2 - 3.4 /CUMM) 1.6 Absolute Monocytes (0.10 - 0.60 /CUMM) 1.3 H Absolute Eosinophils (0.0 - 0.7 /CUMM) 0.6 Absolute Basophils (0.0 - 0.2 /CUMM) 0.1 PUBS MCHC (33.0 - 37.0 G/DL) 32.2 L 02/01 02/01 02/01 02/01 2314 1500 0830 0200 Coagulation PT (9.4 - 12.5 SEC) 15.7 H INR (0.90 - 1.17) 1.50 H APTT (25 - 37 SEC) 72 H 108 *H 66 H Hematology CBC w Diff NO MAN DIFF REQ WBC (4.8 - 10.8 /CUMM) 9.8 RBC (4.70 - 6.10 /CUMM) 3.72 L Hgb (14.0 - 18.0 G/DL) 9.1 L Hct (42 - 52 %) 27.8 L MCV (80.0 - 94.0 FL) 74.9 L MCH (27.0 - 31.0 PG) 24.4 L RDW (11.5 - 14.5 %) 16.7 H Plt Count (130 - 400 /CUMM) 650 H MPV (7.4 - 10.4 FL) 7.5 Gran % (42.2 - 75.2 %) 69.6 Lymphocytes % (20.5 - 51.1 %) 15.8 L Monocytes % (1.7 - 9.3 %) 8.2 Eosinophils % (0 - 5 %) 5.7 H Basophils % (0.0 - 2.0 %) 0.7 Absolute Granulocytes (1.4 - 6.5 /CUMM) 6.8 H Absolute Lymphocytes (1.2 - 3.4 /CUMM) 1.6 Absolute Monocytes (0.10 - 0.60 /CUMM) 0.8 H Absolute Eosinophils (0.0 - 0.7 /CUMM) 0.6 Absolute Basophils (0.0 - 0.2 /CUMM) 0.1 PUBS MCHC (33.0 - 37.0 G/DL) 32.5 L 12/02 1855 Coagulation APTT (25 - 37 SEC) 110 *H Assessment/Plan Assessment/Plan 56yo M POD#6 s/p resection of transverse colon and colostomy due to perforated transverse colon mass. AVSS. Patient progressing well. Increased WBC. - Pain control - PRN Zofran - Continue diet - f/u labs - OOB as desired - continue hep gtt - dose coumadin per INR - continue abx - dc planning - will d/w attending Core Measures/Miscellaneous Gabriel Catheter Date In: 11/28/16 Venous Thromboembolism VTE Risk Factors: Acute medical illness, Age > 40, Previous VTE, Surgery VTE Contraindications: No Contraindications VTE Prophylaxis Ordered Inpt Mechanical (ALPS/TEDS) VTE Diagnosis: No VTE Type: NONE VTE Confirmed by (Test): NONE Beta Caroline Is Beta Caroline a Home Med? No Antibiotics Is Patient on Antibiotics? Yes If Yes: infection
--- NOTE | 2016-12-04 11:48 | PN- General Surgery ---
Surgical Brief Attending Note Brief Attending Note: Recovering as expected. Ready for d/c today. Coumadin 10 daily. INR can come up as outpt. Old dx of PE without documented hypercoagulable state. Visiting nurse for stoma care and daily packing change to midline wound.
[2016-12-04 11:52] LABS: PTT 71 SEC (25-37)
--- NOTE | 2016-12-04 12:20 | Patient Discharge Instructions ---
Discharge Instructions General Discharge Information You were seen/treated for: perforated colon You had these procedures: colectomy, colostomy creation Watch for these problems: increased abdominal pain, increased redness or drainage of wounds No bath, but you may shower: Yes Other wound care: Daily packing to abdominal incision. Keep the rest of the incision clean and dry. Daily dry dressing change. Colostomy care Special Instructions: INR daily until stable. Goal INR 2-3, coumadin to be dosed according to INR. Diet Continue normal diet: Yes Activity Activity Self Limited: Yes Acute Coronary Syndrome Inclusion Criteria At DC or during hospital stay patient has or had the following: ACS DIAGNOSIS No Discharge Core Measures Meds if any: Prescribed or Continued at Discharge Meds if any: NOT Prescribed or Continued at Discharge Congestive Heart Failure Inclusion Criteria At DC or during hospital stay patient has or had the following: CHF DIAGNOSIS No Discharge Core Measures Meds if any: Prescribed or Continued at Discharge Meds if any: NOT Prescribed or Continued at Discharge Cerebrovascular accident Inclusion Criteria At DC or during hospital stay patient has or had the following: CVA/TIA Diagnosis No Discharge Core Measures Meds if any: Prescribed or Continued at Discharge Meds if any: NOT Prescribed or Continued at Discharge Venous thromboembolism Inclusion Criteria VTE Diagnosis No VTE Type NONE VTE Confirmed by (Test) NONE Discharge Core Measures - Per Current guidelines, there needs to be overlap - treatment for the first 5 days of Warfarin therapy. - If discharged on Warfarin prior to 5 days of - overlap therapy, the patient will need to be - assessed for post discharge needs including - *Post discharge parental anticoagulation - *Warfarin and/or parental anticoagulation education - *Follow up date to check INR post discharge At least 5 days overlap therapy as Inpatient No Meds if any: Prescribed or Continued at Discharge Note: Overlap Therapy is Warfarin and Anticoagulant Meds if any: NOT Prescribed or Continued at Discharge
[2016-12-04] MEDS ORDERED: HYDROMORPHONE HC2 M1 PO (12:29)
[2016-12-04 15:52] VITALS: BP 104/70
--- NOTE | 2016-12-04 18:01 | PN- General Surgery ---
Surgical Brief Attending Note Brief Attending Note: Patient became acutely upset about his mother and fiance making medical decisions about him without his knowledge. he does not appear at threat to self. he denies suicidal ideation. However in light of the social issues regarding discharge to home, will hold on d/c until tomorrow.
[2016-12-04 23:32] VITALS: BP 138/92
--- NOTE | 2016-12-05 07:44 | PN- General Surgery ---
See Addendum Subjective Subjective: Reports pain controlled. Social issues yesterday, delaying discharge to home. Tolerating diet. Out of bed without difficulty. No dizziness. No shortness of breath. No chest pains. Voiding well. Objective Vital Signs and I&Os Vital Signs Date Time Temp Pulse Resp B/P Pulse O2 O2 Flow FiO2 Ox Delivery Rate 12/04 2332 97.6 92 20 138/92 93 Room Air 12/04 1552 94 Intake & Output 12/05 0800 12/05 0000 12/04 1600 12/04 0800 12/04 0000 12/03 1600 Intake Total 292 587 7507 338.4 600 1600 Output Total 50 100 300 429 251 1479 Balance 450 400 700 -611.6 500 0 Intake, IV 200 100 338.4 400 Intake, Oral 001 873 3780 600 1200 Output, Stool 50 100 50 100 100 Output, Urine 156 196 9150 Physical Exam: General - alert & oriented x 3. comfortable. no acute distress. Lungs - clear bilaterally. no w/r/r. Cardiac - s1s2. reg. Abdomen - soft. stoma pink. bag full of stool. midline packing removed (soaked with seropurulent drianage). repacked open area of inferior midline incision. expected matty-incisional tenderness. Extremities - warm bilaterally. Assessment/Plan Assessment/Plan 56yo M POD#7 s/p resection of transverse colon and colostomy due to perforated transverse colon mass tolerating diet pain controlled f/u labs coumadin 10 daily. d/c hep gtt when INR>2 packing and dressing changed stoma care d/c home today will d/w ?discharge with antibiotics Core Measures/Miscellaneous Gabriel Catheter Date In: 11/28/16 Venous Thromboembolism VTE Risk Factors: Acute medical illness, Age > 40, Previous VTE, Surgery VTE Contraindications: No Contraindications VTE Prophylaxis Ordered Inpt Mechanical (ALPS/TEDS) VTE Diagnosis: No VTE Type: NONE VTE Confirmed by (Test): NONE Beta Caroline Is Beta Caroline a Home Med? No Antibiotics Is Patient on Antibiotics? Yes If Yes: infection
[2016-12-05 07:57] LABS: ABSOLUTE BASOPHIL COUNT 0 /CUMM (0.0-0.2); ABSOLUTE EOSINOPHIL COUNT 0.5 /CUMM (0.0-0.7); ABSOLUTE LYMPH COUNT 1.3 /CUMM (1.2-3.4); BASOPHIL % 0.5 % (0.0-2.0); EOSINOPHIL % 4.8 % (0-5); GRANULOCYTE % 71.2 % (42.2-75.2); HEMATOCRIT 25.3 % (42-52); MEAN CORPUSCULAR HGB 24.6 PG (27.0-31.0); MEAN CORPUSCULAR HGB CONC 32.5 G/DL (33.0-37.0); MEAN CORPUSCULAR VOLUME 75.6 FL (80.0-94.0); MEAN PLATELET VOLUME 7.2 FL (7.4-10.4); PLATELET COUNT 544 /CUMM (130-400); RBC DISTRIBUTION WIDTH 18.3 % (11.5-14.5); RED BLOOD CELL CT 3.35 /CUMM (4.70-6.10); WHITE BLOOD CELL COUNT 9.9 /CUMM (4.8-10.8)
[2016-12-05 08:00] VITALS: BP 112/68
[2016-12-05 08:13] VITALS: BP 112/68
[2016-12-05 08:21] LABS: PT 21.2 SEC (9.4-12.5)
[2016-12-05 10:00] VITALS: BP 112/68
[2016-12-05 12:00] VITALS: BP 112/68
[2016-12-05 14:00] VITALS: BP 118/72
[2016-12-05 16:00] VITALS: BP 118/68; BP 118/72
--- NOTE | 2016-12-08 11:35 | Surgical Discharge Summary ---
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 Home Who Do You Live With? Significant Other Services at Home: None What is Your Primary Language? Vietnamese ETOH Use: denies use Review of Systems: Not performed at discharge Hospital Course Course Attending Physician: MINOO ALMONTE MD Primary Care Physician: SHAHRIAR TEJADA MD Hospital Course: Patient was admitted to the surgical service and begun on IV antibiotics for contained colonic perforation. It appeared to be due to a locally advanced transverse colon cancer. It was quite evident that he will need emergency surgery. He was admitted and have his anticoagulation reversed with surgery conducted the following morning. Please see operative dictation for details. His postoperative course was stable. He had some drainage from his surgical site which required removal some cheikh for open packing. He had return of bowel function on postoperative day number 4. His diet advanced discharged to home. His anticoagulation was restarted on postop day 3 with heparin drip and converted to Coumadin. Allergies: Coded Allergies: NO KNOWN ALLERGIES (11/27/16) Significant Procedures: Subtotal colectomy with right colostomy Drainage of intraperitoneal abscess Pertinent Lab Results: Stage IV colon cancer (peritoneal metastases). Disposition Summary Disposition Principal Diagnosis: Stage IV colon cancer Additional Diagnosis: Colonic perforation with intraperitoneal abscess Discharge Disposition: home health services Discharge Instructions General Discharge Information Code Status: Full Code Patient's Diet: Low residual Patient's Activity: No lifting Follow-Up Instructions/Appts: 1 week for staple removal Medications at Discharge Discharge Medications: Continue taking these medications: Warfarin Sodium (Coumadin) 10 MG TABLET 1 Tablet ORAL DAILY Qty = 90 Instructions: INR to be drawn daily until stable. Results to Dr Almonte's office. Goal INR 2-3, coumadin to be dosed accordingly Start taking the following new medications: Hydromorphone HCl (Hydromorphone HCl) 2 MG TABLET 1-2 Milligram ORAL EVERY 3 HOURS NEEDED as needed for PAIN Qty = 36 No Refills Copies To: MALLORY JOHNS,SHAHRIAR Bae
[2017-03-14] MEDS ORDERED: OXAYDO7.5 MG PO (00:02)
[2017-03-14] MEDS ORDERED: OXYCODONE HCL E10 MG PO (00:38)
== END 2016-12-05 16:45 | disposition home health service (06) | DRG 329 ==
LOC: ENRESERVDT → ENRESERVTM → ERH 18:04 → ERHI 21:33 → ENPENDDIS 21:33 → DELPENDDIS 21:33 → 2NB 21:33
PROVIDERS: Emergency Medicine; Ophthalmology; Physician Assistant; Physician Assistant Surgical; ADMIT Surgery
PROC: 0W9G0ZZ Drainage of Peritoneal Cavity, Open Approach (ICD-10-PCS; principal; 2016-11-28)
PROC: 0DTN0ZZ Resection of Sigmoid Colon, Open Approach (ICD-10-PCS; principal; 2016-11-28)
PROC: 0D1K0Z4 Bypass Ascending Colon to Cutaneous, Open Approach (ICD-10-PCS; principal; 2016-11-28)
PROC: 0DTM0ZZ Resection of Descending Colon, Open Approach (ICD-10-PCS; principal; 2016-11-28)
PROC: 0DTL0ZZ Resection of Transverse Colon, Open Approach (ICD-10-PCS; principal; 2016-11-28)
PROC: 0DBW0ZX Excision of Peritoneum, Open Approach, Diagnostic (ICD-10-PCS; principal; 2016-11-28)
DX: C18.4 Malignant neoplasm of transverse colon (principal); K63.1 Perforation of intestine (nontraumatic); K65.1 Peritoneal abscess; C78.5 Secondary malignant neoplasm of large intestine and rectum; C78.6 Secondary malignant neoplasm of retroperitoneum and peritoneum; L97.319 Non-pressure chronic ulcer of right ankle with unspecified severity; F05 Delirium due to known physiological condition; I87.2 Venous insufficiency (chronic) (peripheral); F10.21 Alcohol dependence, in remission; Z87.891 Personal history of nicotine dependence; Z86.711 Personal history of pulmonary embolism; Z86.718 Personal history of other venous thrombosis and embolism; Z79.01 Long term (current) use of anticoagulants
CPT/HCPCS: 2NBSP; 36415; 73630-LT; 74177; 82436; 86920; 87040; 87086; 87147; 87804; 87804-59; 88305; 88309; 93005; 93010; 96374; 96375; G0480; J0131; J0696; J1100; J1630; J1644; J1650; J1885; J2060; J2405; J2765; J7042; P9016; P9017; S5012

== ENCOUNTER → 2017-01-14 | Day surgery (SDC) | payer OTHER, MEDICARE ==
[~2017-01-14] VITALS: Ht 185.4 cm; Wt 93.0 kg
[~2017-01-14] MED LIST: COUMADIN10 M1 PO; HYDROMORPHONE HC2 M1 PO; OXAYDO7.5 MG PO; OXYCODONE HCL E10 MG PO
[2017-01-14 07:57] LABS: PT 10.9 SEC (9.4-12.5)
--- NOTE | 2017-01-14 11:26 | RADIOLOGY REPORT ---
EXAMINATION: XR PORTABLE CHEST CLINICAL INFORMATION: Port-A-Cath insertion. Evaluate for pneumothorax. COMPARISON: None. TECHNIQUE: Portable AP view of the chest was obtained. FINDINGS: Port-A-Cath of the left chest wall with subclavian catheter terminating in the distal superior vena cava. No pneumothorax or pleural effusion. Lungs are well expanded and clear. Cardiac silhouette is normal in size. The mediastinal and hilar contours are normal. Old, healed fractures of right lateral 4th - 7th ribs. IMPRESSION: 1. No acute cardio pulmonary disease. 2. Port-A-Cath is in satisfactory position.
--- NOTE | 2017-01-14 13:32 | Operative Report ---
Operative/Inv Procedure Report Surgery Date: 01/14/17 Name of Procedure: Left subclavian Port-A-Cath placement with fluoroscopic guidance Pre-Operative Diagnosis: Metastatic colon cancer Post-Operative Diagnosis: Same Estimated Blood Loss: scant Surgeon/Mat Maker: SUZY JOHNS,MINOO De La Garza Anesthesia: local monitored anesthesi Implants: Port Operative/Procedure Note Note: After consent he is brought to the operating room laid supine. Sedation was obtained and his left chest and neck were prepped and draped. The skin in the upper left chest was infiltrated with a cocktail local anesthesia. The subclavian vein was then percutaneously accessed on the second pass. A wire was placed on the level of the right atrium. Confirmation of proper orientation was confirmed with fluoroscopic imaging. A pocket was then created inferiorly through a separate incision. His was done with blunt and cautery dissection. The catheter was then attached and placed in the cavity and brought up through a separate stab incision where the wire was coming through. We then measured the catheter under fluoroscopic imaging. Dilator was then placed over the wire under fluoroscopy. The cath was placed through it and the peel-away sheath removed. Final fluoroscopic images showed the catheter into the right ventricle. I therefore removed 3 cm of catheter and reattached to the port. These images showed proper positioning. The port was then flushed with concentrated heparin. The port was anchored to the deep subcutaneous tissues tissues with 0 Vicryl. Skin incisions closed with 4-0 Vicryl. Steri-Strips and sterile dressing applied. Sponge and needle counts are correct
--- NOTE | 2017-01-14 15:58 | RADIOLOGY REPORT ---
EXAMINATION:\H\ \N\Chest fluoroscopy in the operating suite CLINICAL INFORMATION: Patient for left-sided Port-A-Cath insertion in the operating room. COMPARISON: None TECHNIQUE: Fluoroscopic assistance was provided to Dr. Bernardo for the performance of central venous port catheter placement in the operating room. 2 spot films are cemented for review. The total time fluoroscopy was 46 seconds. FINDINGS: Last spot film demonstrates the tip of the central venous catheter to be in the mid SVC. No pneumothorax is seen. IMPRESSION: Status post central venous port placement. Please refer to operative notes for further details.
== END ==
LOC: STS 03:56
PROVIDERS: Surgery
DX: C18.4 Malignant neoplasm of transverse colon (principal); C78.6 Secondary malignant neoplasm of retroperitoneum and peritoneum; Z86.711 Personal history of pulmonary embolism; Z79.01 Long term (current) use of anticoagulants
CPT/HCPCS: 36415; C1751; J0131; J0690; J1644; J2250; J2405

== ENCOUNTER 2017-03-13 15:24 | Emergency (ER) | payer OTHER, MEDICARE ==
[~2017-03-13] VITALS: Ht 185.4 cm; Wt 93.0 kg
[~2017-03-13 15:24] MED LIST changes: -OXAYDO7.5 MG PO; -OXYCODONE HCL E10 MG PO
[2017-03-13 16:08] LABS: ABSOLUTE BASOPHIL COUNT 0.1 /CUMM (0.0-0.2); ABSOLUTE EOSINOPHIL COUNT 0.4 /CUMM (0.0-0.7); ABSOLUTE GRANULOCYTE CT 13.2 /CUMM (1.4-6.5); ABSOLUTE LYMPH COUNT 1.5 /CUMM (1.2-3.4); ABSOLUTE MONOCYTE COUNT 1.2 /CUMM (0.10-0.60); BASOPHIL % 0.3 % (0.0-2.0); EOSINOPHIL % 2.2 % (0-5); GRANULOCYTE % 80.8 % (42.2-75.2); HEMATOCRIT 32.8 % (42-52); MEAN CORPUSCULAR HGB 24.5 PG (27.0-31.0); MEAN CORPUSCULAR HGB CONC 32.4 G/DL (33.0-37.0); MEAN CORPUSCULAR VOLUME 75.7 FL (80.0-94.0); MEAN PLATELET VOLUME 6.7 FL (7.4-10.4); PLATELET COUNT 293 /CUMM (130-400); RBC DISTRIBUTION WIDTH 19.1 % (11.5-14.5); RED BLOOD CELL CT 4.34 /CUMM (4.70-6.10); WHITE BLOOD CELL COUNT 16.4 /CUMM (4.8-10.8)
--- NOTE | 2017-03-13 17:32 | ED GI/GU/ABDOMINAL COMPLAINT ---
History of Present Illness General Chief Complaint: General Adult Stated Complaint: BLEEDING INTERNALLY PER STOMA Source: patient, family, old records Exam Limitations: no limitations Vital Signs & Intake/Output Vital Signs & Intake/Output Vital Signs Date Time Temp Pulse Resp B/P B/P Pulse O2 O2 Flow FiO2 Mean Ox Delivery Rate 03/13 1532 97.8 92 15 134/81 97 Room Air Room Air Allergies Coded Allergies: No Known Allergies (03/13/17) Reconcile Medications Hydromorphone HCl 2 MG TABLET 1-2 MG PO Q3P PRN PAIN Warfarin Sodium (Coumadin) 10 MG TABLET 1 TAB PO DAILY PE/DVT (Reported) INR to be drawn daily until stable. Results to Dr Bernardo's office. Goal INR 2-3, coumadin to be dosed accordingly Triage Note: PT TO ED C/C OF BLOOD IN COLOSTOMY FOR TWO DAYS. PT HAS HISTORY OF COLON CANCER WITH NEW COLOSTOMY IN NOVEMBER. PT REPORTS HIS STOMA NORMALLY BLEEDS AFTER SHOWERS, BUT BLOOD IN THE COLOSTOMY BAG IS NEW. PT REPORTS ABD PAIN BELOW BELLY BUTTON THAT'S INTERMITTENTLY BEEN THERE SINCE NOVEMBER. -N/-V. CURRENTLY ON CHEMO FOR METS OF CANCER TO LIVER AND ABDOMEN. DENIES FEVER OR CHILLS AT HOME. PT REPORTS INCREASED DIFFICULTY URINATING WELL. PT'S ONCOLOGIST: DR. CALLAHAN. Triage Nurses Notes Reviewed? yes HPI: Patient presents with diffuse abdominal pain as well as bleeding from his stoma site. The pain is been worsening for the past 3 days. There is no nausea or vomiting. Pain is cramping in nature. Pain is 6 out of 10. There is no radiation outside of the abdominal area. His stoma is also sticking out more than normal. Patient is also noticed purple spots on his stoma. (SHEERE JOHNS,JORDAN Rangel) Past History Travel History Traveled to [place] past 21 day No Medical History Any Pertinent Medical History? 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 No (JORDAN BENTLEY MD) Review of Systems Review of Systems Constitutional: Reports: no symptoms. EENTM: Reports: no symptoms. Respiratory: Reports: no symptoms. Cardiovascular: Reports: no symptoms. GI: Reports: see HPI, abdominal pain. Genitourinary: Reports: no symptoms. Musculoskeletal: Reports: no symptoms. Skin: Reports: no symptoms. Neurological/Psychological: Reports: no symptoms. Hematologic/Endocrine: Reports: no symptoms. Immunologic/Allergic: Reports: no symptoms. All Other Systems: Reviewed and Negative (SHEREE JOHNS,JORDAN Rangel) Physical Exam Physical Exam General Appearance: well developed/nourished, alert, awake, mild distress Head: atraumatic, normal appearance Eyes: Bilateral: PERRL, EOMI. Ears, Nose, Throat, Mouth: hearing grossly normal, DRY MUCOSA Neck: normal inspection, supple, full range of motion Respiratory: normal breath sounds, chest non-tender, no respiratory distress, lungs clear Cardiovascular: regular rate/rhythm, normal peripheral pulses Gastrointestinal: soft, STOMA IS HYPEREMIC, DARK RED BLOOD IN COLOSTOMY BAG, DECREASED BOWEL SOUNDS Back: normal inspection, normal range of motion Extremities: normal range of motion Neurologic/Psych: no motor/sensory deficits, awake, alert, oriented x 3, normal gait, normal mood/affect Skin: intact, normal color, warm/dry Core Measures ACS in differential dx? No Severe Sepsis Present: No Septic Shock Present: No (SHEREE JOHNS,JORDAN Rangel) Physical Exam Gastrointestinal: STOMA IS HYPEREMIC, DARK RED BLOOD IN COLOSTOMY BAG, DECREASED BOWEL SOUNDS (BLAKE JOHNS,JOSE D) Progress Differential Diagnosis: bowel obstruction, cholecystitis, diverticulitis, gastritis, hepatitis, ischemic bowel, inflamm bowel dis, pancreatitis, SBO Plan of Care: Orders Procedure Date/time Status Add-on Test (ER Only) 03/13 1957 Active PROTHROMBIN TIME 03/13 1552 Complete URINALYSIS 03/13 1544 Active COMPREHENSIVE METABOLIC PANEL 03/13 1544 Complete CBC WITHOUT DIFFERENTIAL 03/13 1544 Complete Laboratory Tests 03/13/17 1552: Anion Gap 10, Estimated GFR > 60, BUN/Creatinine Ratio 8.3, Glucose 108 H, Calcium 9.0, Total Bilirubin 0.4, AST 20, ALT 31, Alkaline Phosphatase 168 H, Total Protein 6.8, Albumin 4.1, Globulin 2.7, Albumin/Globulin Ratio 1.5, PT 47.0 *H, INR 4.54 *H, CBC w Diff NO MAN DIFF REQ, RBC 4.34 L, MCV 75.7 L, MCH 24.5 L, RDW 19.1 H, MPV 6.7 L, Gran % 80.8 H, Lymphocytes % 9.4 L, Monocytes % 7.3, Eosinophils % 2.2, Basophils % 0.3, Absolute Granulocytes 13.2 H, Absolute Lymphocytes 1.5, Absolute Monocytes 1.2 H, Absolute Eosinophils 0.4 , Absolute Basophils 0.1, PUBS MCHC 32.4 L Diagnostic Imaging: Viewed by Me: CT Scan. Discussed w/RAD: CT Scan. 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 I've reviewed the patient's CAT scan and laboratory findings. Surgery paged. 03/13/2017 7:55:29 PM patient's case discussed with Phil Dowd MD who feels that this patient's presentation isn't consistent with acute surgical condition. 03/13/2017 9:10:10 PM I have updated Palomo on his test results. His INR is somewhat supratherapeutic but he states during the last emptying of his colostomy bag there was no apparent blood. GI has been paged. 9:30 PM patient's case d/w dr louis. He feels that the patient can be managed as an outpatient. 03/13/2017 10:18:19 PM I have updated Palomo on my discussions with surgery and GI. He was told by someone at Dr. Bernardo's office that "a surgeon would see him" in the emergency department. He states he feels angry and frustrated because "nobody has looked at his colostomy". He states he has a "grapefruit" there that needs to be evaluated. I was unaware this particular concern on the part of patient but I we'll evaluate and consider a change in current plan. 03/13/2017 11:00:37 PM I have updated Palomo on repeat discussion with Dr. Dowd who feels the patient can be managed as an outpatient, the area of concern is likely a small hematoma induced by minor trauma. Patient now states that he wears a compression belt while he takes chemotherapy and I suspect he induced minor trauma to the stoma. (BLAKE JOHNS,JOSE Hamilton) Departure Departure Condition: Stable Referrals: MALLORY JOHNS,SHAHRIAR Bae (PCP/Family) Departure Forms: Customer Survey General Discharge Information (SHEREE JOHNS,JORDAN Rangel) Departure Disposition: HOME OR SELF CARE Clinical Impression Primary Impression: Abdominal pain, unspecified site Qualifiers: Abdominal location: generalized Qualified Code: R10.84 - Generalized abdominal pain Secondary Impressions: Abdominal wall hernia at previous stoma site, Hematoma Additional Instructions: Follow-up with Dr. Bernardo on Thursday for reevaluation of your stoma. Do not take your Coumadin dose tomorrow and take half a dose on Thursday. Follow-up with Dr. Eller on Thursday for repeat INR and additional dose adjustments to your Coumadin if necessary. Return if any concerns or sudden worsening. Please try to avoid manipulating your stoma or putting any sort of compression or other trauma. Please note that there might be incidental findings in your evaluation that are unrelated to the current emergency department visit. Please notify your primary care doctor about this emergency department visit in order to obtain and review all of the testing performed so that these incidental findings can be monitored as needed. If you had an x-ray performed, please understand that some fractures may not be seen on the initial set of x-rays. If your symptoms persist you might need a repeat set of x-rays to check for such a fracture. If you had a laceration evaluated, please understand that foreign bodies such as glass or wood may not be visible to the naked eye or on plain x-rays. If the wound becomes red, swollen, increasingly more painful or if there is any drainage from the wound, please have it reevaluated by a physician for the possibility of a retained foreign body. Thank you for choosing the [facility] Emergency Department for your care. It was a pleasure to serve you today. Jose Oconnor M.D. [facility] (BLAKE JOHNS,JOSE Hamilton)
--- NOTE | 2017-03-13 18:59 | CT SCAN REPORT ---
EXAMINATION: CT ABDOMEN AND PELVIS WITH CONTRAST CLINICAL INFORMATION: Bleeding from stoma. Abdominal pain. COMPARISON: CT abdomen and pelvis with contrast 11/27/2016. PET/CT skull base to mid thigh 12/30/2016. TECHNIQUE: Multidetector volumetric imaging was performed of the abdomen and pelvis before and after the IV administration of 95 mL of Optiray 320 intravenous contrast. Sagittal and coronal reformatted images were obtained on the technologist's workstation. DLP: 400 mGy-cm FINDINGS: LUNG BASES: Redemonstrated are multiple subcentimeter pulmonary nodules along the periphery of the left lower lobe, visualized measuring up to 6 mm in diameter, not significantly changed relative to the prior examination. No pleural or pericardial effusions are identified. LIVER, GALLBLADDER, AND BILIARY TREE: Evaluation of the hepatobiliary system is again notable for lobular, perihepatic hypoattenuating lesions with associated scalloping of the liver, corresponding to previously described/suspected peritoneal metastases. A lobular hypoattenuating lesion along the medial margin of the right hepatic lobe has slightly increased relative to the prior examination and is visualized measuring approximately 1.8 x 2.5 cm (series 2, image 19); previously, 1.6 x 1.9 cm. Additional lobular hypoattenuating lesions interposed between the liver and the right hemidiaphragm appears stable to slightly decreased relative to the prior examination. For instance, a lesion along the right hepatic dome which previously measured 4.1 x 5.9 cm now measures 4.1 x 5.6 cm (series 2, image 8). No intrahepatic biliary ductal dilatation is identified. The gallbladder is contracted, without visible gallstones, gallbladder wall thickening or pericholecystic inflammatory changes. Redemonstrated is a hypoattenuating lesion at the didier hepatis measuring 1.1 x 1.8 cm (series 2, image 18); previously, 1.0 x 1.4 cm. This may represent an additional peritoneal implant versus a mildly prominent didier hepatis lymph node. PANCREAS: Unremarkable. SPLEEN: Unremarkable. ADRENAL GLANDS: Unremarkable. KIDNEYS AND URETERS: The kidneys are normal in size, shape, and attenuation. No hydronephrosis, hydroureter, or calculi seen. No perinephric stranding. Redemonstrated is an exophytic hypoattenuating lesion from the upper pole of the left kidney measuring 1.5 cm, not significantly changed in size relative to the prior exam. BLADDER: Unremarkable. GASTROINTESTINAL TRACT: Evaluation of the gastrointestinal system demonstrates postsurgical changes related to interval subtotal colectomy, right lower quadrant cecostomy and East's pouch formation. There is a moderate fat-containing parastomal hernia. There are no visible acute findings involving the colostomy. No significant circumferential thickening or mucosal hyperemia of the colostomy is identified. The appendix is visualized within the right hemiabdomen and appears unremarkable. Loops of small bowel are normal in caliber, without findings indicative of small bowel obstruction or ileus. Previously identified lobular hypoattenuating implants throughout the abdomen, surrounding the previously visualized product mass along the transverse colon are no longer identified. A 2.0 x 2.0 cm hypoattenuating nodule within the lower abdomen, anterior to the aortic bifurcation may represent a residual peritoneal implant (series 2, image 56). No organizing intra-abdominal or pelvic fluid collections are identified and there are no extraluminal foci of air to suggest perforation. ABDOMINAL WALL: As noted above, there are postsurgical changes related to subtotal colectomy and right lower quadrant cecostomy. A moderate fat-containing parastomal hernia is identified. LYMPH NODES: Subcentimeter mesenteric and retroperitoneal lymph nodes, not significantly changed relative to the prior examination. VASCULAR: Scattered atherosclerosis of the abdominal aorta and its branching vessels, without aneurysmal dilatation. The abdominal vasculature is patent. Specifically, the main portal vein, right and left portal veins, hepatic veins, splenic vein, SMV, celiac artery, SMA a and LORAINE are patent and opacified by intravenous contrast. PELVIC VISCERA: Unremarkable. OSSEOUS STRUCTURES: No acute osseous abnormality. No visible destructive osseous lesions. Normal alignment of the imaged thoracolumbar spine. IMPRESSION: 1. No acute findings within the abdomen or pelvis to explain patient symptomatology. Postsurgical changes related to interval subtotal colectomy, right lower quadrant cecostomy and East's pouch formation. There is a moderate fat-containing peristomal hernia. There is no visible circumferential thickening or mucosal hyperemia involving the ostomy. There are no intraluminal foci of air to suggest perforation. Abdominal and pelvic loops of bowel are normal in caliber, without findings indicative of small bowel obstruction or ileus. 2. Previously identified lobular hypoattenuating lesions scattered throughout the peritoneum are no longer identified. There are persistent lobular hypoattenuating lesions along the liver and interposed between the right hemidiaphragm and the liver dome, suspicious for mucinous peritoneal metastases. There is an additional 2.0 x 2.0 cm hypoattenuating nodule within the lower abdomen, anterior to the aortic bifurcation, also suspicious for a peritoneal implant. 3. Several subcentimeter pulmonary nodules along the periphery of the left lower lobe, not significantly changed relative to the prior examination. Cannot exclude pulmonary metastases. A nonemergent outpatient chest CT may be obtained for further evaluation.
[2017-03-13 23:11] VITALS: BP 134/76
[2017-03-13] MEDS ORDERED: OXAYDO7.5 MG PO (23:26)
[2017-03-14] MEDS ORDERED: OXAYDO7.5 MG PO (00:02)
[2017-03-14] MEDS ORDERED: OXYCODONE HCL E10 MG PO (00:38)
== END 2017-03-13 23:41 ==
LOC: ERH 15:24
PROVIDERS: Emergency Medicine
DX: R10.84 Generalized abdominal pain (principal)
CPT/HCPCS: 74177

== ENCOUNTER 2017-11-15 16:03 | Inpatient (IN) | payer OTHER, MEDICARE ==
[~2017-11-15] VITALS: Ht 185.4 cm; Wt 93.0 kg
[~2017-11-15 16:03] MED LIST changes: +AUGMENTIN 500-1 EACH PO; +DIVALPROEX SOD500 M2 PO; +LOPERAMIDE2 M2 PO; +MULTI-DAY PLUS1 EAC1 PO; +OXAYDO7.5 MG PO; +OXYCODONE HCL E10 MG PO; +OXYCODONE HCL5 M1 PO; +POLYTRIM EYE DR10 ML OPH
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
[2017-11-15 18:13] LABS: ABSOLUTE BASOPHIL COUNT 0 /CUMM (0.0-0.2); ABSOLUTE EOSINOPHIL COUNT 0.1 /CUMM (0.0-0.7); ABSOLUTE MONOCYTE COUNT 0 /CUMM (0.10-0.60)
[2017-11-15 18:23] LABS: ABSOLUTE GRANULOCYTE CT 0.5 /CUMM (1.4-6.5); BASOPHIL % 0.6 % (0.0-2.0); EOSINOPHIL % 5.1 % (0-5); HEMATOCRIT 34.4 % (42-52); MEAN CORPUSCULAR HGB 25.8 PG (27.0-31.0); MEAN CORPUSCULAR HGB CONC 33.3 G/DL (33.0-37.0); MEAN CORPUSCULAR VOLUME 77.5 FL (80.0-94.0); MEAN PLATELET VOLUME 7.5 FL (7.4-10.4); PLATELET COUNT 364 /CUMM (130-400); RBC DISTRIBUTION WIDTH 21.8 % (11.5-14.5); RED BLOOD CELL CT 4.45 /CUMM (4.70-6.10)
[2017-11-15 18:28] LABS: WHITE BLOOD CELL COUNT 1.6 /CUMM (4.8-10.8)
[2017-11-15 18:29] LABS: GRANULOCYTE % 29.9 % (42.2-75.2)
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
[2017-11-15 22:13] LABS: PT > 103.0 SEC (9.4-12.5)
[2017-11-15 22:38] VITALS: BP 110/60
[2017-11-15 22:49] VITALS: BP 134/80
[2017-11-16] MEDS ORDERED: DEPAKENE250 MG/5 M PO (00:58)
[2017-11-16 05:53] VITALS: BP 148/84
[2017-11-16 06:39] VITALS: BP 134/86
[2017-11-16 08:36] LABS: PT 91.8 SEC (9.4-12.5)
[2017-11-16 08:47] LABS: ABSOLUTE BASOPHIL COUNT 0 /CUMM (0.0-0.2); ABSOLUTE EOSINOPHIL COUNT 0.1 /CUMM (0.0-0.7); ABSOLUTE MONOCYTE COUNT 0.2 /CUMM (0.10-0.60); BASOPHIL % 0.3 % (0.0-2.0); EOSINOPHIL % 1.5 % (0-5); HEMATOCRIT 31.3 % (42-52); MEAN CORPUSCULAR HGB 25.2 PG (27.0-31.0); MEAN CORPUSCULAR VOLUME 78.6 FL (80.0-94.0); MEAN PLATELET VOLUME 7.2 FL (7.4-10.4); PLATELET COUNT 304 /CUMM (130-400); RED BLOOD CELL CT 3.98 /CUMM (4.70-6.10)
--- NOTE | 2017-11-16 08:57 | Admission Certification ---
Admission Certification Certification Statement - As attending physician, I certify that at the time of - admission, based on clinical presentation, severity of - symptoms, need for further diagnostic testing and - therapeutic interventions, and risk of adverse outcomes - without in-hospital treatment, in my clinical assessment, - this patient requires an acute hospital stay for a minimum - of two nights or longer. I have also considered psychsocial - factors such as support system, advanced age, financial - issues, cognitive issues, and failed out-patient treatments, - past re-admission history, safety of patient, and lack of - compliance as applicable. Specific rationale supporting this admission is: Left arm cellulitis, severe neutropenia in this patient with colon cancer on chemotherapy, supratherapeutic INR.
[2017-11-16 09:44] LABS: GRANULOCYTE % 75.3 % (42.2-75.2); WHITE BLOOD CELL COUNT 5.3 /CUMM (4.8-10.8)
--- NOTE | 2017-11-16 09:51 | PN- Housestaff ---
Subjective Follow-up For: Left arm cellulitis Neutropenia Supratherapeutic INR Metastatic colon cancer on chemotherapy Subjective: The patient was seen and examined. Feels better compared presentation. Is tearful because of some family problems however denies feeling depressed. The patient denies any headache, dizziness, lightheadedness, nausea, vomiting, abdominal pain, urinary symptoms. Has remained afebrile with stable vital signs. Review of Systems Constitutional: Reports: no symptoms. Objective Last 24 Hrs of Vital Signs/I&O Vital Signs Date Time Temp Pulse Resp B/P B/P Pulse O2 O2 Flow FiO2 Mean Ox Delivery Rate 11/16 1410 99.2 73 20 138/70 99 Room Air 11/16 0639 97.9 89 20 134/86 98 Room Air 11/15 2249 98.3 94 20 134/80 100 Room Air 11/15 1930 100 18 145/86 97 Room Air 11/15 1607 98.7 102 15 134/74 94 Room Air Room Air Intake & Output 11/16 1600 11/16 0800 11/16 0000 Intake Total 1800 500 Output Total Balance 1800 500 Intake, IV 600 Intake, Oral 1200 500 Number 1 1 Bowel Movements Patient 205 lb Weight Weight Reported by Patient Measurement Method Physical Exam General Appearance: Alert, Cooperative, No Acute Distress Skin: Approx 5 cm erythematous rash on left arm w/ warmth, no open wound or pus noted. Cardiovascular: Regular Rate, Normal S1, Normal S2, No Murmurs, Gallops, Rubs Lungs: Clear to Auscultation, Normal Air Movement Abdomen: Normal Bowel Sounds, Soft, No Tenderness, No Hepatospenomegaly, No Masses Extremities: No Clubbing, No Cyanosis, No Edema, Normal Pulses, No Tenderness/ Swelling Vascular: Normal Pulses, Pulses Symmetrical Assessment/Plan Assessment: This is a 57-year-old gentleman with past medical history significant for DVT/PE on warfarin, bipolar disorder, TBI, metastatic colon cancer s/p subtotal colectomy and colostomy with revision done in Aug 2017, on chemotherapy Q2 weeks (last chemo was on ThursdayNov 10), presented to the ER for pain around the stoma and left arm erythema/ pain. Impression/plan: #Neutropenia along with Left upper extremity cellulitis Patient has developed left upper extremity cellulitis likely from the last allergy shot his absolute neutrophilic count is 500, low due to chemotherapy. ED physician already talked to the oncologist newspaper correspondent as per recommendations, patient has received clindamycin along with Neupogen once. There is no documented history of MRSA but as patient is immunocompromised along with low absolute neutrophil count he was started on broad-spectrum antibiotics. * c/w IV ceftazidime and vancomycin * s/p Gently hydration * ID consult and oncology consult placed. * Monitor closely #Supratherapeutic INR(>10), history of PE and DVT: * Patient was given by mouth vitamin K 10 mg once * Watch for any active signs of bleed. * In case of active bleeding consider FFP type and cross * Repeat INR in the mornin.93 * Hold warfarin #history of metastatic colon cancer recently they diagnosed in December 2016 status post subtotal colectomy and colostomy bag currently on chemotherapy * Obtain oncology consult # History of bipolar disorder * Continue by mouth valproic acid. #History of substance abuse Obtain urine tox DVT prophylaxis-supra therapeutic INR Problem List: 1. Neutropenia 2. Cellulitis Pain Ratin Pain Location: NA Pain Goal: Remain pain free Pain Plan: NA Tomorrow's Labs & Rationales: CBC to monitor H&H BEP to monitor electrolytes
[2017-11-16 14:10] VITALS: BP 138/70
--- NOTE | 2017-11-16 14:21 | PN- Att Addend ---
Attending Addendum Attending Brief Note Patient seen and examined, feeling slightly better overall. The left upper extremity cellulitis is receding. Vital Signs Date Time Temp Pulse Resp B/P B/P Pulse O2 O2 Flow FiO2 Mean Ox Delivery Rate 11/16 0639 97.9 89 20 134/86 98 Room Air 11/15 2249 98.3 94 20 134/80 100 Room Air 11/15 1930 100 18 145/86 97 Room Air 11/15 1607 98.7 102 15 134/74 94 Room Air Room Air on exam; aox3, nad. cv; s1,s2, rrr resp; clear abd; soft, nt, bs+ ext; no edema, Laboratory Tests 11/16 Chemistry Sodium (137 - 145 mmol/L) 141 Potassium (3.5 - 5.1 mmol/L) 4.1 Chloride (98 - 107 mmol/L) 103 Carbon Dioxide (22 - 30 mmol/L) 27 Anion Gap (5 - 16) 12 BUN (9 - 20 mg/dL) 11 Creatinine (0.7 - 1.2 mg/dL) 0.8 Estimated GFR (>60 ml/min) > 60 BUN/Creatinine Ratio (7 - 25 %) 13.8 Lactic Acid Cancelled Coagulation PT (9.4 - 12.5 SEC) 91.8 *H INR (0.90 - 1.17) 8.93 *H Hematology CBC w Diff NO MAN DIFF REQ WBC (4.8 - 10.8 /CUMM) 5.3 RBC (4.70 - 6.10 /CUMM) 3.98 L Hgb (14.0 - 18.0 G/DL) 10.0 L Hct (42 - 52 %) 31.3 L MCV (80.0 - 94.0 FL) 78.6 L MCH (27.0 - 31.0 PG) 25.2 L RDW (11.5 - 14.5 %) 22.0 H Plt Count (130 - 400 /CUMM) 304 MPV (7.4 - 10.4 FL) 7.2 L Gran % (42.2 - 75.2 %) 75.3 H Lymphocytes % (20.5 - 51.1 %) 18.3 L Monocytes % (1.7 - 9.3 %) 4.6 Eosinophils % (0 - 5 %) 1.5 Basophils % (0.0 - 2.0 %) 0.3 Absolute Granulocytes (1.4 - 6.5 /CUMM) 4.0 Absolute Lymphocytes (1.2 - 3.4 /CUMM) 1.0 L Absolute Monocytes (0.10 - 0.60 /CUMM) 0.2 Absolute Eosinophils (0.0 - 0.7 /CUMM) 0.1 Absolute Basophils (0.0 - 0.2 /CUMM) 0 PUBS MCHC (33.0 - 37.0 G/DL) 32.0 L Urines Urine Color Cancelled Urine Clarity Cancelled Urine pH Cancelled Ur Specific [place] Cancelled Urine Protein Cancelled Urine Ketones Cancelled Urine Nitrite Cancelled Urine Bilirubin Cancelled Urine Urobilinogen Cancelled Ur Leukocyte Esterase Cancelled Ur Microscopic Cancelled Urine Hemoglobin Cancelled Urine Glucose Cancelled 11/15 1745 Chemistry Sodium (137 - 145 mmol/L) 143 Potassium (3.5 - 5.1 mmol/L) 4.1 Chloride (98 - 107 mmol/L) 102 Carbon Dioxide (22 - 30 mmol/L) 27 Anion Gap (5 - 16) 14 BUN (9 - 20 mg/dL) 10 Creatinine (0.7 - 1.2 mg/dL) 0.9 Estimated GFR (>60 ml/min) > 60 BUN/Creatinine Ratio (7 - 25 %) 11.1 Glucose (65 - 99 mg/dL) 80 Lactic Acid (0.7 - 2.1 mmol/L) 1.5 Calcium (8.4 - 10.2 mg/dL) 9.0 Total Bilirubin (0.2 - 1.3 mg/dL) 0.4 AST (17 - 59 U/L) 27 ALT (21 - 72 U/L) 31 Alkaline Phosphatase (< 127 U/L) 70 Total Protein (6.3 - 8.2 g/dL) 7.2 Albumin (3.5 - 5.0 g/dL) 4.2 Globulin (1.9 - 4.2 gm/dL) 3.0 Albumin/Globulin Ratio (1.1 - 2.2 %) 1.4 Coagulation PT (9.4 - 12.5 SEC) > 103.0 *H INR (0.90 - 1.17) > 10.0 *H Hematology CBC w Diff NO MAN DIFF REQ WBC (4.8 - 10.8 /CUMM) 1.6 L RBC (4.70 - 6.10 /CUMM) 4.45 L Hgb (14.0 - 18.0 G/DL) 11.5 L Hct (42 - 52 %) 34.4 L MCV (80.0 - 94.0 FL) 77.5 L MCH (27.0 - 31.0 PG) 25.8 L RDW (11.5 - 14.5 %) 21.8 H Plt Count (130 - 400 /CUMM) 364 MPV (7.4 - 10.4 FL) 7.5 Gran % (42.2 - 75.2 %) 29.9 L Lymphocytes % (20.5 - 51.1 %) 61.5 H Monocytes % (1.7 - 9.3 %) 2.9 Eosinophils % (0 - 5 %) 5.1 H Basophils % (0.0 - 2.0 %) 0.6 Absolute Granulocytes (1.4 - 6.5 /CUMM) 0.5 L Absolute Lymphocytes (1.2 - 3.4 /CUMM) 1.0 L Absolute Monocytes (0.10 - 0.60 /CUMM) 0 L Absolute Eosinophils (0.0 - 0.7 /CUMM) 0.1 Absolute Basophils (0.0 - 0.2 /CUMM) 0 PUBS MCHC (33.0 - 37.0 G/DL) 33.3 A/P; 57-year-old gentleman with past medical history significant for traumatic brain injury(during childhood), DVT/PE on Coumadin, substance abuse, lactose intolerance, and colon cancer with metastases to liver (diagnosed in December 2016) status post subtotal colectomy and colostomy bag initially presented with stomal pain which got resolved and then admitted with neutropenia as well as left upper extremity cellulitis. Received Neupogen in the emergency room for hematology recommendations. White blood cell count has improved and neutropenia resolved. Cellulitis is improving. Patient currently covered with broad-spectrum antibiotics. ID consult is awaited. Will wait for the blood cultures. Patient also had coagulopathy and Coumadin was held. Left upper extremity ultrasound is pending to rule out for any hematoma. Can resume Imodium as per home regimen. Check INR in am. H&H stable.
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
[2017-11-16 21:19] VITALS: BP 117/70
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
--- NOTE | 2017-11-17 07:00 | PN- Oncology ---
Subjective Subjective: Offers no new complaints, after upper extremity remains minimally tender Review of Systems: 12 point review of systems nonspecific Objective Vital Signs and I&Os Vital Signs Date Time Temp Pulse Resp B/P B/P Pulse O2 O2 Flow FiO2 Mean Ox Delivery Rate 11/16 2118 99.3 89 18 117/70 96 Room Air 11/16 1410 99.2 73 20 138/70 99 Room Air Intake & Output 11/17 0800 11/17 0000 11/16 1600 11/16 0800 11/16 0000 11/15 1600 Intake Total 1000 7588 397 7505 500 Output Total Balance 1000 5003 815 8588 500 Intake, IV 600 Intake, Oral 1000 1438 707 3558 500 Number 1 1 Bowel Movements Patient 205 lb Weight Weight Reported by Patient Measurement Method Gen.: in NAD ENT: Sclera anicteric Chest: Normal respiratory effort, decreased breath sounds Cor: RRR, no extra sounds Abdomen: Soft, bowel sounds present, no tenderness, no rebound Extremities: Without clubbing, cyanosis, or asymmetric edema Neurology: Alert and oriented 3, no gross deficit Skin: Left upper extremity cellulitis, no puncture wound at Center of erythema Current Medications: Current Medications Sig/Shane Start time Last Medication Dose Route Stop Time Status Admin Acetaminophen 650 MG Q6P PRN 11/15 2044 AC PO Ceftazidime 1,000 MG IQ8 11/15 233 AC 11/16 IV 2343 Morphine Sulfate 2 MG Q8 PRN 11/15 2044 AC 11/17 IV 0252 Oxycodone HCl 5 MG Q6 PRN 11/15 2044 AC 11/17 PO 0608 Sodium Chloride 1,000 ML ONCE ONE 11/15 2330 DC 11/16 IV 11/16 1249 0030 Valproic Acid 250 MG BID 11/16 010 AC 11/16 PO 2120 Vancomycin HCl 1,000 MG Q12 11/15 233 AC 11/16 Sodium Chloride 250 ML IV 2120 Results Last 24 Hours of Lab Results: Laboratory Tests 11/16 0735 Chemistry Sodium (137 - 145 mmol/L) 141 Potassium (3.5 - 5.1 mmol/L) 4.1 Chloride (98 - 107 mmol/L) 103 Carbon Dioxide (22 - 30 mmol/L) 27 Anion Gap (5 - 16) 12 BUN (9 - 20 mg/dL) 11 Creatinine (0.7 - 1.2 mg/dL) 0.8 Estimated GFR (>60 ml/min) > 60 BUN/Creatinine Ratio (7 - 25 %) 13.8 Coagulation PT (9.4 - 12.5 SEC) 91.8 *H INR (0.90 - 1.17) 8.93 *H Hematology CBC w Diff NO MAN DIFF REQ WBC (4.8 - 10.8 /CUMM) 5.3 RBC (4.70 - 6.10 /CUMM) 3.98 L Hgb (14.0 - 18.0 G/DL) 10.0 L Hct (42 - 52 %) 31.3 L MCV (80.0 - 94.0 FL) 78.6 L MCH (27.0 - 31.0 PG) 25.2 L RDW (11.5 - 14.5 %) 22.0 H Plt Count (130 - 400 /CUMM) 304 MPV (7.4 - 10.4 FL) 7.2 L Gran % (42.2 - 75.2 %) 75.3 H Lymphocytes % (20.5 - 51.1 %) 18.3 L Monocytes % (1.7 - 9.3 %) 4.6 Eosinophils % (0 - 5 %) 1.5 Basophils % (0.0 - 2.0 %) 0.3 Absolute Granulocytes (1.4 - 6.5 /CUMM) 4.0 Absolute Lymphocytes (1.2 - 3.4 /CUMM) 1.0 L Absolute Monocytes (0.10 - 0.60 /CUMM) 0.2 Absolute Eosinophils (0.0 - 0.7 /CUMM) 0.1 Absolute Basophils (0.0 - 0.2 /CUMM) 0 PUBS MCHC (33.0 - 37.0 G/DL) 32.0 L Cultures-remain negative Assessment/Plan Assessment/Recommendations: 1. Cellulitis-odd position of the erythema with no obvious puncture wound Recommend- Antibiotics Consider ultrasound of region 2. Stage IV colon cancer-active chemotherapy consisting of FOLFOX to continue his outpatient 3. Neutropenia-resolved
[2017-11-17 07:05] VITALS: BP 118/64
--- NOTE | 2017-11-17 08:16 | PN- Housestaff ---
Subjective Follow-up For: Left arm cellulitis Neutropenia-resolved Supratherapeutic INR-resolved Metastatic colon cancer on chemotherapy Subjective: The patient was seen and examined. He reports having substernal 5/10 chest pain radiating to his right shoulder for the past 2 weeks. He states that his chest pain is not related to movement however is worsened while he walks. He denies any dizziness, lightheadedness, nausea, vomiting, shortness of breath, abdominal pain, urinary symptoms. Vital signs remained stable. No overnight events reported. Had drop in his H& H. 11.5 on admission to 9.6 today. Review of Systems Constitutional: Reports: see HPI. Objective Last 24 Hrs of Vital Signs/I&O Vital Signs Date Time Temp Pulse Resp B/P B/P Pulse O2 O2 Flow FiO2 Mean Ox Delivery Rate 11/17 1518 98.9 88 20 150/92 97 Room Air 11/17 0705 98.6 83 18 118/64 91 11/16 2119 99.3 89 18 117/70 96 Room Air Intake & Output 11/17 1600 11/17 0800 11/17 0000 Intake Total 1020 1000 1200 Output Total 452 Balance 568 1000 1200 Intake, IV 300 Intake, Oral 720 1000 1200 Output, Stool 2 Output, Urine 450 Physical Exam General Appearance: Alert, Oriented X3, Cooperative, No Acute Distress Other Physical Findings: Skin: Approx 5 cm erythematous rash on left arm w/ warmth, no open wound or pus noted. Cardiovascular: Regular Rate, Normal S1, Normal S2, No Murmurs, Gallops, Rubs Lungs: Clear to Auscultation, Normal Air Movement Abdomen: Normal Bowel Sounds, Soft, No Tenderness, No Hepatospenomegaly, No Masses Extremities: No Clubbing, No Cyanosis, No Edema, Normal Pulses, No Tenderness/ Swelling Vascular: Normal Pulses, Pulses Symmetrical Current Medications: Current Medications Sig/Shane Start time Last Medication Dose Route Stop Time Status Admin Acetaminophen 650 MG Q6P PRN 11/15 2045 AC PO Ampicillin Sodium/ 1,500 MG Q6 11/17 1800 AC 11/17 Sulbactam Sodium IV 1855 Sodium Chloride 100 ML Ampicillin Sodium/ 3,000 MG Q6 11/17 1200 DC 11/17 Sulbactam Sodium IV 1247 Sodium Chloride 100 ML Ceftazidime 1,000 MG IQ8 11/15 2330 DC 11/17 IV 0942 Morphine Sulfate 2 MG Q8 PRN 11/15 2044 11/17 IV 1247 Oxycodone HCl 5 MG Q6 PRN 11/15 2044 11/17 PO 1858 Valproic Acid 250 MG BID 11/16 0100 11/17 PO 0941 Vancomycin HCl 1,000 MG Q12 11/15 2330 DC 11/16 Sodium Chloride 250 ML IV 2120 Last 24 Hrs of Lab/James Results Last 24 Hrs of Labs/Mics: Laboratory Tests 11/17/17 1602: Troponin I < 0.01 11/17/17 0845: Anion Gap 11, Estimated GFR > 60, BUN/Creatinine Ratio 7.8, PT 17.1 H, INR 1.64 H, CBC w Diff NO MAN DIFF REQ, RBC 3.75 L, MCV 79.2 L, MCH 25.6 L, RDW 22.1 H, MPV 7.5, Gran % 73.5, Lymphocytes % 19.7 L, Monocytes % 5.1, Eosinophils % 1.4, Basophils % 0.3, Absolute Granulocytes 5.8, Absolute Lymphocytes 1.6, Absolute Monocytes 0.4, Absolute Eosinophils 0.1, Absolute Basophils 0, PUBS MCHC 32.3 L Assessment/Plan Assessment: This is a 57-year-old gentleman with past medical history significant for DVT/PE on warfarin, bipolar disorder, TBI, metastatic colon cancer s/p subtotal colectomy and colostomy with revision done in Aug 2017, on chemotherapy Q2 weeks (last chemo was on ThursdayNov 10), presented to the ER for pain around the stoma and left arm erythema/ pain. Impression/plan: #Chest pain: EKG ordered and did not show any significant change. Troponin ordered. We'll monitor closely #Drop in H&H: * Guaiac stools #Neutropenia along with Left upper extremity cellulitis Patient has developed left upper extremity cellulitis likely from the last allergy shot his absolute neutrophilic count is 500, low due to chemotherapy. ED physician already talked to the oncologist exhibition designer as per recommendations, patient has received clindamycin along with Neupogen once. There is no documented history of MRSA but as patient is immunocompromised along with low absolute neutrophil count he was started on broad-spectrum antibiotics. * DC IV ceftazidime and vancomycin and started unasyn per ID recs. * s/p Gently hydration * ID consult and oncology recommendations are appreciated. * Monitor closely #Supratherapeutic INR(>10), history of PE and DVT: * Repeat INR in the mornin.63 * Hold warfarin given drop in H&H * Decide regarding when to restart warfarin tomorrow. #history of metastatic colon cancer recently they diagnosed in December 2016 status post subtotal colectomy and colostomy bag currently on chemotherapy * Oncology consult appreciated. # History of bipolar disorder * Continue by mouth valproic acid. #History of substance abuse Obtain urine tox DVT prophylaxis-ALPS, consider resuming warfarin in no sign of active bleeding Problem List: 1. Neutropenia 2. Cellulitis Pain Ratin Pain Location: Chest Pain Goal: Remain pain free Pain Plan: Morphin PRN Oxycodone PRN Tomorrow's Labs & Rationales: INR CBC to monitor H&H BEP to monitor electrolytes
[2017-11-17 09:39] LABS: ABSOLUTE BASOPHIL COUNT 0 /CUMM (0.0-0.2); ABSOLUTE EOSINOPHIL COUNT 0.1 /CUMM (0.0-0.7); ABSOLUTE GRANULOCYTE CT 5.8 /CUMM (1.4-6.5); ABSOLUTE LYMPH COUNT 1.6 /CUMM (1.2-3.4); ABSOLUTE MONOCYTE COUNT 0.4 /CUMM (0.10-0.60); BASOPHIL % 0.3 % (0.0-2.0); EOSINOPHIL % 1.4 % (0-5); GRANULOCYTE % 73.5 % (42.2-75.2); HEMATOCRIT 29.7 % (42-52); MEAN CORPUSCULAR HGB 25.6 PG (27.0-31.0); MEAN CORPUSCULAR HGB CONC 32.3 G/DL (33.0-37.0); MEAN CORPUSCULAR VOLUME 79.2 FL (80.0-94.0); MEAN PLATELET VOLUME 7.5 FL (7.4-10.4); PLATELET COUNT 271 /CUMM (130-400); RBC DISTRIBUTION WIDTH 22.1 % (11.5-14.5); RED BLOOD CELL CT 3.75 /CUMM (4.70-6.10); WHITE BLOOD CELL COUNT 7.9 /CUMM (4.8-10.8)
[2017-11-17 09:44] LABS: PT 17.1 SEC (9.4-12.5)
--- NOTE | 2017-11-17 14:01 | PN- Att Addend ---
Attending Addendum Attending Brief Note Patient seen and examined, he still continues to complain of feeling tired. The left arm is looking much better. Ultrasound is still pending. Vital Signs Date Time Temp Pulse Resp B/P B/P Pulse O2 O2 Flow FiO2 Mean Ox Delivery Rate 11/17 0705 98.6 83 18 118/64 91 11/16 2119 99.3 89 18 117/70 96 Room Air 11/16 1410 99.2 73 20 138/70 99 Room Air on exam; aox3, nad. cv; s1,s2, rrr resp: clear abd: soft, nt, bs+ ext; no edema. Laboratory Tests 11/17 0845 Chemistry Sodium (137 - 145 mmol/L) 139 Potassium (3.5 - 5.1 mmol/L) 4.6 Chloride (98 - 107 mmol/L) 99 Carbon Dioxide (22 - 30 mmol/L) 29 Anion Gap (5 - 16) 11 BUN (9 - 20 mg/dL) 7 L Creatinine (0.7 - 1.2 mg/dL) 0.9 Estimated GFR (>60 ml/min) > 60 BUN/Creatinine Ratio (7 - 25 %) 7.8 Coagulation PT (9.4 - 12.5 SEC) 17.1 H INR (0.90 - 1.17) 1.64 H Hematology CBC w Diff NO MAN DIFF REQ WBC (4.8 - 10.8 /CUMM) 7.9 RBC (4.70 - 6.10 /CUMM) 3.75 L Hgb (14.0 - 18.0 G/DL) 9.6 L Hct (42 - 52 %) 29.7 L MCV (80.0 - 94.0 FL) 79.2 L MCH (27.0 - 31.0 PG) 25.6 L RDW (11.5 - 14.5 %) 22.1 H Plt Count (130 - 400 /CUMM) 271 MPV (7.4 - 10.4 FL) 7.5 Gran % (42.2 - 75.2 %) 73.5 Lymphocytes % (20.5 - 51.1 %) 19.7 L Monocytes % (1.7 - 9.3 %) 5.1 Eosinophils % (0 - 5 %) 1.4 Basophils % (0.0 - 2.0 %) 0.3 Absolute Granulocytes (1.4 - 6.5 /CUMM) 5.8 Absolute Lymphocytes (1.2 - 3.4 /CUMM) 1.6 Absolute Monocytes (0.10 - 0.60 /CUMM) 0.4 Absolute Eosinophils (0.0 - 0.7 /CUMM) 0.1 Absolute Basophils (0.0 - 0.2 /CUMM) 0 PUBS MCHC (33.0 - 37.0 G/DL) 32.3 L A/P: 57-year-old gentleman with past medical history significant for traumatic brain injury(during childhood), DVT/PE on Coumadin, substance abuse, lactose intolerance, and colon cancer with metastases to liver (diagnosed in December 2016) status post subtotal colectomy and colostomy bag initially presented with stomal pain which got resolved and then admitted with neutropenia as well as left upper extremity cellulitis. US is still pending. Abx have been switched to unasyn. Neutropenia is resolved. Will DC neutropenic precautions. Possible DC home tomorrow if US neg, and patient continue to improve.
--- NOTE | 2017-11-17 14:42 | PN- Infect Dx ---
Subjective Subjective: Afebrile. He complains of headaches and diffuse aches. He also notes continued discomfort in the left upper extremity. Objective Last 24 Hrs of Vital Signs/I&O Vital Signs Date Time Temp Pulse Resp B/P B/P Pulse O2 O2 Flow FiO2 Mean Ox Delivery Rate 11/17 0705 98.6 83 18 118/64 91 11/16 2119 99.3 89 18 117/70 96 Room Air Intake & Output 11/17 1600 11/17 0800 11/17 0000 Intake Total 1000 1200 Output Total Balance 1000 1200 Intake, Oral 1000 1200 Physical Exam Other Physical Findings: He appears comfortable in no acute distress Chest Port-A-Cath in place Lungs are clear Heart regular rhythm with no murmur Extremities erythema and mild induration over the left triceps area, mildly tender to palpation Results Last 24 Hours of Lab Results: Laboratory Tests 11/17 0845 Chemistry Sodium (137 - 145 mmol/L) 139 Potassium (3.5 - 5.1 mmol/L) 4.6 Chloride (98 - 107 mmol/L) 99 Carbon Dioxide (22 - 30 mmol/L) 29 Anion Gap (5 - 16) 11 BUN (9 - 20 mg/dL) 7 L Creatinine (0.7 - 1.2 mg/dL) 0.9 Estimated GFR (>60 ml/min) > 60 BUN/Creatinine Ratio (7 - 25 %) 7.8 Coagulation PT (9.4 - 12.5 SEC) 17.1 H INR (0.90 - 1.17) 1.64 H Hematology CBC w Diff NO MAN DIFF REQ WBC (4.8 - 10.8 /CUMM) 7.9 RBC (4.70 - 6.10 /CUMM) 3.75 L Hgb (14.0 - 18.0 G/DL) 9.6 L Hct (42 - 52 %) 29.7 L MCV (80.0 - 94.0 FL) 79.2 L MCH (27.0 - 31.0 PG) 25.6 L RDW (11.5 - 14.5 %) 22.1 H Plt Count (130 - 400 /CUMM) 271 MPV (7.4 - 10.4 FL) 7.5 Gran % (42.2 - 75.2 %) 73.5 Lymphocytes % (20.5 - 51.1 %) 19.7 L Monocytes % (1.7 - 9.3 %) 5.1 Eosinophils % (0 - 5 %) 1.4 Basophils % (0.0 - 2.0 %) 0.3 Absolute Granulocytes (1.4 - 6.5 /CUMM) 5.8 Absolute Lymphocytes (1.2 - 3.4 /CUMM) 1.6 Absolute Monocytes (0.10 - 0.60 /CUMM) 0.4 Absolute Eosinophils (0.0 - 0.7 /CUMM) 0.1 Absolute Basophils (0.0 - 0.2 /CUMM) 0 PUBS MCHC (33.0 - 37.0 G/DL) 32.3 L Last 24 Hours of James Results: Blood cultures November 15 negative Assessment/Plan Impression: Stable with temperatures remaining normal and white blood cell count also normal after initially presenting with neutropenia in the setting of recent chemotherapy for metastatic colon cancer with liver metastases. His left upper extremity inflammation is presumably secondary to a recent injection for allergies, which he gets every 2 weeks. He is now on Unasyn after initial treatment with Vancomycin and Ceftazidime. Suggestion: 1. Ultrasound of the left triceps area 2. Warm compresses to the left triceps area 3. Can continue Unasyn but decrease to 1.5 g IV every 6 hours
[2017-11-17 15:18] VITALS: BP 150/92
--- NOTE | 2017-11-17 16:26 | ULTRASOUND REPORT ---
EXAMINATION: US SUPERFICIAL IMAGING, EXTREMITY, LEFT CLINICAL INFORMATION: Swelling in the left shoulder and arm. Rule out left shoulder abscess/hematoma. COMPARISON: None TECHNIQUE: Focused ultrasound of the area of patient's redness in the left shoulder/upper lateral arm was performed. FINDINGS: There is significant subcutaneous soft tissue swelling and edema seen with overlying skin thickening, measuring up to 0.5 cm. With color Doppler imaging, no hyperemia is demonstrated. No focal collection or mass is seen. IMPRESSION: Prominent cutaneous and subcutaneous soft tissue swelling and edema noted. No drainable focal fluid collection seen.
--- NOTE | 2017-11-17 18:45 | Discharge Summary ---
Visit Information Visit Dates Admission Date: 11/15/17 Discharge Date: 11/18/17 Hospital Course Course Attending Physician: Kaitlin Babin MD Primary Care Physician: Josué Eller MD Consulting Request: 1 Consulting Specialty: Infectious Disease Consulting Request: 2 Consulting Specialty: Hematology/Oncology Hospital Course: This is a 57-year-old gentleman with past medical history significant for DVT/PE on warfarin, bipolar disorder, TBI, metastatic colon cancer s/p subtotal colectomy and colostomy with revision done in Aug 2017, on chemotherapy Q2 weeks (last chemo was on ThursdayNov 10), who initially presented with stomal pain which resolved and then admitted with neutropenia as well as left upper extremity cellulitis. Ph/Ex on admission: Vital Signs Date Time Temp Pulse Resp B/P B/P Pulse O2 O2 Flow FiO2 Mean Ox Delivery Rate 11/15 2249 98.3 94 20 134/80 100 Room Air 11/15 1930 100 18 145/86 97 Room Air 11/15 1607 98.7 102 15 134/74 94 Room Air Room Air General Appearance Alert, Oriented X3, Cooperative, No Acute Distress Skin No Breakdown HEENT Atraumatic, PERRLA, EOMI, Mucous Membr. moist/pink Neck Supple, No JVD, No thryomegaly Cardiovascular Regular Rate, Normal S1, Normal S2 Lungs Clear to Auscultation, Normal Air Movement Abdomen Normal Bowel Sounds, Soft, Erythema and Slight tenderness to palpation around the colostomy bag Extremities No Clubbing, No Cyanosis, No Edema, Normal Pulses, Erythema with swelling on left upper extremity with no pus or discharge Pertinent Labs on admission: 11/15/17 1745: Anion Gap 14, Estimated GFR > 60, BUN/Creatinine Ratio 11.1, Glucose 80, Lactic Acid 1.5, Calcium 9.0, Total Bilirubin 0.4, AST 27, ALT 31, Alkaline Phosphatase 70, Total Protein 7.2, Albumin 4.2, Globulin 3.0, Albumin/Globulin Ratio 1.4, PT > 103.0 *H, INR > 10.0 *H, CBC w Diff NO MAN DIFF REQ, RBC 4.45 L, MCV 77.5 L, MCH 25.8 L, RDW 21.8 H, MPV 7.5, Gran % 29.9 L, Lymphocytes % 61.5 H, Monocytes % 2.9, Eosinophils % 5.1 H, Basophils % 0.6, Absolute Granulocytes 0.5 L, Absolute Lymphocytes 1.0 L, Absolute Monocytes 0 L, Absolute Eosinophils 0.1, Absolute Basophils 0, PUBS MCHC 33.3 The following problems were addressed during the course of his hospital stay: #Neutropenia along with Left upper extremity cellulitis: Left upper extremity cellulitis was thought to be likely from the last allergy shot his neutropenia was likely due to chemotherapy. ED physician talked to the oncologist wine consultant as per recommendations, patient received clindamycin along with Neupogen once. There was no documented history of MRSA but as patient was immunocompromised with neutropenia count he was started on broad-spectrum antibiotics (ceftazidime and vancomycin) which was later on changed to unasyn per ID recs and eventually the patient was discharged home on PO Augmentin to complete total 7-day course of AB therapy. During his course of hospital stay, his white blood cell count normalized on AB therapy and he remained afebrile. #Supratherapeutic INR(>10), history of PE and DVT: The patient was given by mouth vitamin K 10 mg once on admission. We monitored him for any signs of active bleeding. INR the next day was 8.93, he also developed drop in H&H. Ultrasound of UE did not show any evidence of hematoma. After that INR became sup-therapeutic. The patient was given therapeutic dose of Lovenox and discharged home with lower dose of warfarin (Home dose was 10 mg, was discharged with 7.5 mg), as his INR was significantly high on admission. He was instructed to check INR on Nov 20 2017 and follow up with his PCP. #Chest discomfort: On day 3 of his hospital stay he reported an occasional 2- week duration of chest discomfort radiating to right shoulder. Trop and ekg checked and were negative. To follow up with PCP upon discharge. #history of metastatic colon cancer recently they diagnosed in December 2016 status post subtotal colectomy and colostomy bag currently on chemotherapy: Oncology consult was placed who recommended for the patient to continue follow up as outpatient. #History of bipolar disorder He was maintained on his SIDER MECH[employer]IC by mouth valproic acid. #DVT prophylaxis: ALPS, Supratherapeutic INR. # Code status: Full code. Allergies: Coded Allergies: No Known Allergies (11/15/17) Significant Procedures: US SUPERFICIAL IMAGING, EXTREMITY, LEFT 11/16/17 FINDINGS: There is significant subcutaneous soft tissue swelling and edema seen with overlying skin thickening, measuring up to 0.5 cm. With color Doppler imaging, no hyperemia is demonstrated. No focal collection or mass is seen. IMPRESSION: Prominent cutaneous and subcutaneous soft tissue swelling and edema noted. No drainable focal fluid collection seen. Pertinent Lab Results: 11/17/17 0845: Anion Gap 11, Estimated GFR > 60, BUN/Creatinine Ratio 7.8, PT 17.1 H, INR 1.64 H, CBC w Diff NO MAN DIFF REQ, RBC 3.75 L, MCV 79.2 L, MCH 25.6 L, RDW 22.1 H, MPV 7.5, Gran % 73.5, Lymphocytes % 19.7 L, Monocytes % 5.1, Eosinophils % 1.4, Basophils % 0.3, Absolute Granulocytes 5.8, Absolute Lymphocytes 1.6, Absolute Monocytes 0.4, Absolute Eosinophils 0.1, Absolute Basophils 0, PUBS MCHC 32.3 L Disposition Summary Disposition Principal Diagnosis: Left upper extremity cellulitis Neutropenia Additional Diagnosis: Supratherapeutic INR Discharge Disposition: home or self care Discharge Instructions General Discharge Information Code Status: Full Code Patient's Diet: Regular Patient's Activity: As tolerated Follow-Up Instructions/Appts: Please follow-up with your PCP on Thursday to check your INR again and change dose of Coumadin if needed Check your INR on 11/20/2017 Please continue medications as prescribed Please follow-up with your oncologist as outpatient. Medications at Discharge Discharge Medications: Stop taking the following medications: Warfarin Sodium (Coumadin) 10 MG TABLET ORAL DAILY Continue taking these medications: Multivitamin-Min/Iron/FA/Vit K (Multi-Day Plus Minerals Tablet) 18 MG IRON-400 MCG-25 MCG TABLET 1 Tablet ORAL DAILY Comments: NOT GIVEN IN THE HOSPITAL Loperamide HCl (Loperamide) 2 MG CAPSULE 2 Capsule ORAL As Directed as needed for DIARRHEA Qty = 60 Comments: Last Taken:11/17/17 Time:10:40 PM Oxycodone HCl (Oxycodone HCl) 5 MG TABLET 1-2 Tablet ORAL EVERY 4-6 HOURS NEEDED as needed for PAIN SCALE 4-6 ( MODERATE) Qty = 36 Instructions: . Comments: Last Taken:11/18/17 Time:12:26 PM Valproic Acid (Depakene) 250 MG/5 ML SOLUTION 1 Milliliters ORAL TWICE DAILY Instructions: 250 MG /5ML PO TWICE DAILY Comments: Last Taken:11/17/17 Time:8:54 PM Start taking the following new medications: Warfarin Sodium (Coumadin) 7.5 MG TABLET 7.5 Milligram ORAL COUMADIN AT 5PM Qty = 60 No Refills Amoxicillin/Potassium Clav (Augmentin 875-125 Tablet) 875 MG-125 MG TABLET 1 Tablet ORAL TWICE DAILY Qty = 9 No Refills Copies To: Rafita JOHNS,Josué Bae
[2017-11-17 22:19] VITALS: BP 146/86
[2017-11-18 06:43] VITALS: BP 132/82
--- NOTE | 2017-11-18 07:32 | PN- Housestaff ---
Pilar Kauffman 11/18/17 0732: Subjective Follow-up For: Left arm cellulitis Neutropenia-resolved Supratherapeutic INR-resolved Metastatic colon cancer on chemotherapy Complaints: no complaints Subjective: Patient was seen and examined this morning. He was sitting comfortably on bed without any complaints. He remained hemodynamically stable and afebrile. His area of cellulitis on left arm is also improving. Review of Systems Constitutional: Denies: chills, diaphoresis. EENTM: Denies: double vision, visual changes. Cardiovascular: Denies: chest pain, edema. Respiratory: Denies: cough, hemoptysis. Gastrointestinal: Denies: bloating, constipation, diarrhea. Skin: Reports: see HPI. Objective Last 24 Hrs of Vital Signs/I&O Vital Signs Date Time Temp Pulse Resp B/P B/P Pulse O2 O2 Flow FiO2 Mean Ox Delivery Rate 11/18 0643 97.6 74 18 132/82 97 11/17 2219 98.7 88 20 146/86 98 11/17 1518 98.9 88 20 150/92 97 Room Air Intake & Output 11/18 1600 11/18 0800 11/18 0000 Intake Total 200 100 Output Total Balance 200 100 Intake, IV 200 100 Physical Exam General Appearance: Alert, Oriented X3, Cooperative, No Acute Distress Skin: left arm erythema better Cardiovascular: Regular Rate, Normal S1, Normal S2 Lungs: Normal Air Movement Abdomen: Soft, No Tenderness Neurological: Normal Speech, Normal Tone Extremities: No Cyanosis, No Edema Current Medications: Current Medications Sig/Shane Start time Last Medication Dose Route Stop Time Status Admin Acetaminophen 650 MG Q6P PRN 11/15 2044 AC PO Ampicillin Sodium/ 1,500 MG Q6 11/17 1800 AC 11/18 Sulbactam Sodium IV 0521 Sodium Chloride 100 ML Ampicillin Sodium/ 3,000 MG Q6 11/17 1200 DC 11/17 Sulbactam Sodium IV 1247 Sodium Chloride 100 ML Enoxaparin Sodium 140 MG ONCE ONE 11/18 1100 CAN SC 11/18 1101 Enoxaparin Sodium 100 MG ONCE ONE 11/18 1100 DC SC 11/18 1101 Enoxaparin Sodium 40 MG ONCE ONE 11/18 1100 DC SC 11/18 1101 Loperamide HCl 2 MG ONE ONE 11/17 2230 DC 11/17 PO 11/17 2230 2240 Morphine Sulfate 2 MG Q8 PRN 11/15 2044 11/18 IV 0521 Oxycodone HCl 5 MG Q6 PRN 11/15 2044 AC 11/18 PO 0637 Patient Medication 1 ED ONE ONE 11/18 1200 DC Teaching ED 11/18 1201 Valproic Acid 250 MG BID 11/16 010 AC 11/17 PO 2053 Warfarin Sodium 7.5 MG ONCE ONE 11/18 1100 DC PO 11/18 1101 Last 24 Hrs of Lab/James Results Last 24 Hrs of Labs/Mics: Laboratory Tests 11/18/17 0730: PT 13.0 H, INR 1.24 H 11/17/17 1602: Troponin I < 0.01 Assessment/Plan Assessment: This is a 57-year-old gentleman with past medical history significant for DVT/PE on warfarin, bipolar disorder, TBI, metastatic colon cancer s/p subtotal colectomy and colostomy with revision done in Aug 2017, on chemotherapy Q2 weeks (last chemo was on ThursdayNov 10), presented to the ER for pain around the stoma and left arm erythema/ pain. Impression/plan: #Drop in H&H: * Guaiac stools, H&H remained stable #Neutropenia along with Left upper extremity cellulitis Patient has developed left upper extremity cellulitis likely from the last allergy shot his absolute neutrophilic count is 500, low due to chemotherapy. ED physician already talked to the oncologist carbon accountant as per recommendations, patient has received clindamycin along with Neupogen once. There is no documented history of MRSA but as patient is immunocompromised along with low absolute neutrophil count he was started on broad-spectrum antibiotics. After resolution of his neutropenia patient was started on Unasyn. Currently his cellulitis is better and will discharge him home most likely on 7-10 day course of Augmentin. #Supratherapeutic INR(>10), history of PE and DVT: * Repeat INR in the mornin.24 * We will give him 7.5 mg of Coumadin today and bridged with full dose of Lovenox and on discharge she will repeat his INR on Thursday and would follow-up with his PCP #history of metastatic colon cancer recently they diagnosed in December 2016 status post subtotal colectomy and colostomy bag currently on chemotherapy * Oncology consult appreciated. Patient will continue outpatient follow-up with oncology. # History of bipolar disorder * Continue by mouth valproic acid. Problem List: 1. Cellulitis Pain Ratin Pain Location: na Pain Goal: Remain pain free Pain Plan: tylenol Tomorrow's Labs & Rationales: none Kaitlin Babin MD 11/18/17 1218: Attending MD Review Statement Attending Statement Attending MD Statement: examined this patient, discuss w/resident/PA/PRECAST MOLDER, agreed w/resident/PA/PRECAST MOLDER, reviewed EMR data (avail), discussed with nursing, discussed with case mgmt, reviewed images, amended to note Attending Assessment/Plan: Patient seen and examined, continues to complain of pain everywhere. Patient has oxycodone ordered. The left upper extremity looks better overall. Ultrasound did not show any evidence of hematoma. INR has been in the subtherapeutic range. Patient Coumadin will be resumed and secondary to the fact that INR is subtherapeutic, will give patient 1 dose of therapeutic dose of Lovenox.. I discussed with the infectious disease, will switch to oral Augmentin for a total of seven-day course. Patient is otherwise medically stable for discharge home today and will continue the rest of his home medications. Will recommend discharging the patient on 7.5 mg of Coumadin. His home dose was 10 mg but his INR was significantly high when he came in. Would recommend rechecking his INR on November 20 2017. Patient follow-up with his PCP.
[2017-11-18] MEDS ORDERED: COUMADIN7.5 M1 PO (10:57)
[2017-11-18] MEDS ORDERED: AUGMENTIN 875-1 EACH PO (13:36)
--- NOTE | 2017-11-18 13:39 | Patient Discharge Instructions ---
Discharge Instructions General Discharge Information You were seen/treated for: cellulitis neutropenia supratherapeutic INR Special Instructions: Please follow-up with your PCP on Thursday to check your INR again and change dose of Coumadin if needed Check your INR on 11/20/2017 Please continue medications as prescribed Please follow-up with your oncologist as outpatient. Diet Continue normal diet: Yes Activity Additional ACTIVITY Info: As tolerated Acute Coronary Syndrome Inclusion Criteria At DC or during hospital stay patient has or had the following: ACS DIAGNOSIS No Discharge Core Measures Meds if any: Prescribed or Continued at Discharge Meds if any: NOT Prescribed or Continued at Discharge Congestive Heart Failure Inclusion Criteria At DC or during hospital stay patient has or had the following: CHF DIAGNOSIS No Discharge Core Measures Meds if any: Prescribed or Continued at Discharge Meds if any: NOT Prescribed or Continued at Discharge Cerebrovascular accident Inclusion Criteria At DC or during hospital stay patient has or had the following: CVA/TIA Diagnosis No Discharge Core Measures Meds if any: Prescribed or Continued at Discharge Meds if any: NOT Prescribed or Continued at Discharge Venous thromboembolism Inclusion Criteria VTE Diagnosis No VTE Type NONE VTE Confirmed by (Test) NONE Discharge Core Measures - Per Current guidelines, there needs to be overlap - treatment for the first 5 days of Warfarin therapy. - If discharged on Warfarin prior to 5 days of - overlap therapy, the patient will need to be - assessed for post discharge needs including - *Post discharge parental anticoagulation - *Warfarin and/or parental anticoagulation education - *Follow up date to check INR post discharge At least 5 days overlap therapy as Inpatient No Meds if any: Prescribed or Continued at Discharge Note: Overlap Therapy is Warfarin and Anticoagulant Meds if any: NOT Prescribed or Continued at Discharge
--- NOTE | 2017-11-18 14:48 | PN- Infect Dx ---
Subjective Subjective: Afebrile. He feels poorly with pain across his chest and in his abdomen. He notes improvement in his left upper extremity discomfort. Objective Last 24 Hrs of Vital Signs/I&O Vital Signs Date Time Temp Pulse Resp B/P B/P Pulse O2 O2 Flow FiO2 Mean Ox Delivery Rate 11/18 0643 97.6 74 18 132/82 97 11/17 2219 98.7 88 20 146/86 98 11/17 1518 98.9 88 20 150/92 97 Room Air Intake & Output 11/18 1600 11/18 0800 11/18 0000 Intake Total 870 200 100 Output Total Balance 870 200 100 Intake, IV 150 200 100 Intake, Oral 720 Number 2 Bowel Movements Physical Exam Other Physical Findings: He appears comfortable in no acute distress but is tearful regarding his overall status Lungs are clear Heart regular rhythm with no murmur Abdomen is soft, nontender with positive bowel sounds; colostomy in place with stool Extremities decreased induration and erythema of the left triceps area Results Last 24 Hours of Lab Results: Laboratory Tests 11/18 11/17 0730 1602 Chemistry Troponin I (<0.11 ng/ml) < 0.01 Coagulation PT (9.4 - 12.5 SEC) 13.0 H INR (0.90 - 1.17) 1.24 H Last 24 Hours of James Results: Blood cultures November 15 negative Recent Imaging Studies: Ultrasound of the left upper extremity reveals significant subcutaneous soft tissue swelling and edema with overlying skin thickening, but with no focal collection or mass Assessment/Plan Impression: Stable with temperatures and white blood cell count normal now on Unasyn, Day 3 of treatment for a possible cellulitis of the left upper extremity at the site of a recent allergy shot, which he gets every 2 weeks, in the setting of neutropenia status post chemotherapy for his metastatic colon cancer. Suggestion: 1. Continue warm compresses to the left triceps area 2. Would consider holding on further allergy shots until he is finished with his chemotherapy 3. Discontinue Unasyn and begin Augmentin 875 mg po every 12 hours for 4 more days
[2017-11-18 14:49] VITALS: BP 108/72
== END 2017-11-18 18:37 | disposition home health service (06) | DRG 809 ==
LOC: ERH 16:03 → ERHI 18:43 → 2NB 18:43 → ENRESERV 20:21 → ENTRNSPT 21:01 → EDTRNSPTSTS 21:16 → 2NB 21:27 → CMPTRNSPT 21:59 → 2NB 11-16 10:56 → ENPENDDIS 11-18 13:45 → 2NB 11-18 18:37
PROVIDERS: Emergency Medicine; Internal Medicine; Student in an Organized Health Care Education/Training Program
DX: D70.1 Agranulocytosis secondary to cancer chemotherapy (principal); L03.114 Cellulitis of left upper limb; C78.7 Secondary malignant neoplasm of liver and intrahepatic bile duct; C18.9 Malignant neoplasm of colon, unspecified; K94.09 Other complications of colostomy; F31.9 Bipolar disorder, unspecified; R79.1 Abnormal coagulation profile; Z86.718 Personal history of other venous thrombosis and embolism; Z86.711 Personal history of pulmonary embolism; Z79.01 Long term (current) use of anticoagulants; Z87.820 Personal history of traumatic brain injury; Z92.21 Personal history of antineoplastic chemotherapy
CPT/HCPCS: 2NBP; 36415; 76881; 80307; 82436; 87040; 93005; 93010; 96374; J0713; J1442; J1650; J3370; J7040

== ENCOUNTER 2018-01-13 17:30 | Inpatient (IN) | payer OTHER, MEDICARE ==
[~2018-01-13] VITALS: Ht 185.4 cm; Wt 93.0 kg
[~2018-01-13 17:30] MED LIST changes: +AUGMENTIN 875-1 EACH PO; +COUMADIN7.5 M1 PO; +DEPAKENE250 MG/5 M PO
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
--- NOTE | 2018-01-13 20:07 | ULTRASOUND REPORT ---
EXAMINATION: US TRIPLEX LOWER EXTREMITY, LEFT CLINICAL INFORMATION: Left leg pain, redness, and swelling COMPARISON: None available TECHNIQUE: Color-flow triplex imaging with spectral analysis and compression Doppler were performed on the lower extremity. FINDINGS: Respiratory variation, normal compression and augmented flow are noted throughout the lower extremity. The visualized common femoral vein, superficial femoral vein, profunda femoral vein, popliteal vein and midcalf peroneal and posterior tibial venous segments show no evidence of deep venous thrombosis. There is a noncompressible superficial vein within the medial left thigh near the knee at a site of skin erythema. Findings most suggestive of superficial thrombophlebitis. IMPRESSION: - There is no evidence of deep venous thrombosis involving the left lower extremity. - There is a noncompressible superficial vein within the medial left thigh near the knee at a site of skin erythema. Findings most suggestive of superficial thrombophlebitis.
[2018-01-13 20:24] LABS: ABSOLUTE BASOPHIL COUNT 0 /CUMM (0.0-0.2); ABSOLUTE EOSINOPHIL COUNT 0.5 /CUMM (0.0-0.7); ABSOLUTE GRANULOCYTE CT 20.1 /CUMM (1.4-6.5); ABSOLUTE LYMPH COUNT 2.8 /CUMM (1.2-3.4); BASOPHIL % 0.1 % (0.0-2.0); EOSINOPHIL % 1.9 % (0-5); GRANULOCYTE % 79.1 % (42.2-75.2); HEMATOCRIT 36.8 % (42-52); MEAN CORPUSCULAR HGB 27.6 PG (27.0-31.0); MEAN CORPUSCULAR HGB CONC 32.6 G/DL (33.0-37.0); MEAN CORPUSCULAR VOLUME 84.5 FL (80.0-94.0); MEAN PLATELET VOLUME 6.5 FL (7.4-10.4); PLATELET COUNT 350 /CUMM (130-400); RBC DISTRIBUTION WIDTH 23.8 % (11.5-14.5); RED BLOOD CELL CT 4.35 /CUMM (4.70-6.10); WHITE BLOOD CELL COUNT 25.4 /CUMM (4.8-10.8)
[2018-01-13 20:29] LABS: PT 40.3 SEC (9.4-12.5)
[2018-01-13] MEDS ORDERED: COUMADIN10 M1 PO (21:34)
[2018-01-13] MEDS ORDERED: PROCHLORPERAZIN10 MG PO (21:35)
[2018-01-13] MEDS ORDERED: FLONASE ALLERG9.9 ML NASB (21:36)
--- NOTE | 2018-01-13 22:29 | CT SCAN REPORT ---
EXAMINATION: CT ANGIOGRAM OF THE CHEST WITH AND WITHOUT CONTRAST (CT PULMONARY ANGIOGRAM FOR PE) CLINICAL INFORMATION: CP X 2 MONTHS, LEFT PAIN, SWELLING COMPARISON: Chest x-ray 08/20/2017 TECHNIQUE: Prior to contrast administration, noncontrast localization images were obtained. Subsequently, multidetector volumetric imaging was performed from the thoracic inlet to below the diaphragms following the administration of 80 mL Omnipaque 350 intravenous contrast. No contrast reaction reported. Sagittal, coronal, and MIP oblique sagittal reformatted images were obtained on the CT workstation, uploaded to PACS, and reviewed. Total exam dose-length product 487.26 mGy-cm. FINDINGS: QUALITY OF STUDY/CONTRAST BOLUS: Satisfactory PULMONARY ARTERIES: No central or segmental pulmonary emboli. THORACIC AORTA: No aneurysm or dissection. LUNG: No focal consolidation, nodules or masses. PLEURA: No pleural effusion or pneumothorax. MEDIASTINUM: Normal heart size. No pericardial effusion. No hilar or mediastinal lymphadenopathy. No evidence of septal bowing or right heart strain. Central port catheter tip in superior vena cava. There is herniated mesenteric fat at the esophageal hiatus. CHEST WALL/AXILLA: No axillary or internal mammary lymphadenopathy. OSSEOUS STRUCTURES: No acute or suspicious osseous abnormality. UPPER ABDOMEN: Again demonstrated is the low attenuating lesion causing lobulated appearance of the superior right lobe of liver under the right diaphragm. This is stable since prior studies. No reflux of contrast into the hepatic veins to suggest elevated right heart pressures. IMPRESSION: No acute abnormality. No evidence of pulmonary embolism. VTE: negative
[2018-01-13 23:17] LABS: ABSOLUTE BASOPHIL COUNT 0.1 /CUMM (0.0-0.2); ABSOLUTE EOSINOPHIL COUNT 0.4 /CUMM (0.0-0.7); ABSOLUTE GRANULOCYTE CT 19.6 /CUMM (1.4-6.5); ABSOLUTE LYMPH COUNT 2.5 /CUMM (1.2-3.4); ABSOLUTE MONOCYTE COUNT 1.8 /CUMM (0.10-0.60); BASOPHIL % 0.4 % (0.0-2.0); EOSINOPHIL % 1.6 % (0-5); GRANULOCYTE % 80.3 % (42.2-75.2); HEMATOCRIT 35.7 % (42-52); MEAN CORPUSCULAR HGB 27.3 PG (27.0-31.0); MEAN CORPUSCULAR HGB CONC 32.5 G/DL (33.0-37.0); MEAN CORPUSCULAR VOLUME 84.2 FL (80.0-94.0); MEAN PLATELET VOLUME 6.4 FL (7.4-10.4); PLATELET COUNT 378 /CUMM (130-400); RED BLOOD CELL CT 4.24 /CUMM (4.70-6.10); WHITE BLOOD CELL COUNT 24.5 /CUMM (4.8-10.8)
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
[2018-01-14 01:29] VITALS: BP 130/85
--- NOTE | 2018-01-14 06:03 | Admission Certification ---
Admission Certification Certification Statement - As attending physician, I certify that at the time of - admission, based on clinical presentation, severity of - symptoms, need for further diagnostic testing and - therapeutic interventions, and risk of adverse outcomes - without in-hospital treatment, in my clinical assessment, - this patient requires an acute hospital stay for a minimum - of two nights or longer. I have also considered psychsocial - factors such as support system, advanced age, financial - issues, cognitive issues, and failed out-patient treatments, - past re-admission history, safety of patient, and lack of - compliance as applicable. Specific rationale supporting this admission is: Sepsis secondary to superficial thrombophlebitis left lower extremity
[2018-01-14 06:26] VITALS: BP 132/85
[2018-01-14 08:32] LABS: PT 50.5 SEC (9.4-12.5)
[2018-01-14 08:52] LABS: ABSOLUTE BASOPHIL COUNT 0 /CUMM (0.0-0.2); ABSOLUTE EOSINOPHIL COUNT 0.3 /CUMM (0.0-0.7); ABSOLUTE LYMPH COUNT 2.5 /CUMM (1.2-3.4); ABSOLUTE MONOCYTE COUNT 2.2 /CUMM (0.10-0.60); BASOPHIL % 0.1 % (0.0-2.0); EOSINOPHIL % 1.5 % (0-5); GRANULOCYTE % 77.1 % (42.2-75.2); MEAN CORPUSCULAR HGB 27.5 PG (27.0-31.0); MEAN CORPUSCULAR HGB CONC 32.4 G/DL (33.0-37.0); MEAN CORPUSCULAR VOLUME 84.8 FL (80.0-94.0); MEAN PLATELET VOLUME 6.9 FL (7.4-10.4); PLATELET COUNT 288 /CUMM (130-400); RBC DISTRIBUTION WIDTH 24.2 % (11.5-14.5); RED BLOOD CELL CT 4.01 /CUMM (4.70-6.10); WHITE BLOOD CELL COUNT 22.1 /CUMM (4.8-10.8)
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
[2018-01-14 13:56] VITALS: BP 134/83
[2018-01-14 21:43] VITALS: BP 133/84
[2018-01-15 06:59] VITALS: BP 130/79
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
[2018-01-15 09:49] LABS: ABSOLUTE BASOPHIL COUNT 0.1 /CUMM (0.0-0.2); ABSOLUTE EOSINOPHIL COUNT 0.3 /CUMM (0.0-0.7); ABSOLUTE GRANULOCYTE CT 10.3 /CUMM (1.4-6.5); ABSOLUTE LYMPH COUNT 2.2 /CUMM (1.2-3.4); ABSOLUTE MONOCYTE COUNT 1.4 /CUMM (0.10-0.60); BASOPHIL % 0.4 % (0.0-2.0); GRANULOCYTE % 72.1 % (42.2-75.2); HEMATOCRIT 35.7 % (42-52); MEAN CORPUSCULAR HGB 27.8 PG (27.0-31.0); MEAN CORPUSCULAR HGB CONC 32.8 G/DL (33.0-37.0); MEAN CORPUSCULAR VOLUME 84.9 FL (80.0-94.0); PLATELET COUNT 304 /CUMM (130-400); RBC DISTRIBUTION WIDTH 24.2 % (11.5-14.5); WHITE BLOOD CELL COUNT 14.3 /CUMM (4.8-10.8)
--- NOTE | 2018-01-15 10:38 | Patient Discharge Instructions ---
Discharge Instructions General Discharge Information You were seen/treated for: reactive leukocytosis Special Instructions: Resume taking your Warfarin on 01/16/18. Have your INR checked on 01/17/18, and then resume your normal schedule of monitoring. Follow-up with your primary care physician within 1 week of discharge. Follow-up with your vascular surgeon, psychiatrist/psychologist, and oncologist as previously scheduled. Call your doctor or return to ER if you should experience fever, shortness of breath, or chest pain. Acute Coronary Syndrome Inclusion Criteria At DC or during hospital stay patient has or had the following: ACS DIAGNOSIS No Discharge Core Measures Meds if any: Prescribed or Continued at Discharge Meds if any: NOT Prescribed or Continued at Discharge Congestive Heart Failure Inclusion Criteria At DC or during hospital stay patient has or had the following: CHF DIAGNOSIS No Discharge Core Measures Meds if any: Prescribed or Continued at Discharge Meds if any: NOT Prescribed or Continued at Discharge Cerebrovascular accident Inclusion Criteria At DC or during hospital stay patient has or had the following: CVA/TIA Diagnosis No Discharge Core Measures Meds if any: Prescribed or Continued at Discharge Meds if any: NOT Prescribed or Continued at Discharge Venous thromboembolism Inclusion Criteria VTE Diagnosis No VTE Type NONE VTE Confirmed by (Test) NONE Discharge Core Measures - Per Current guidelines, there needs to be overlap - treatment for the first 5 days of Warfarin therapy. - If discharged on Warfarin prior to 5 days of - overlap therapy, the patient will need to be - assessed for post discharge needs including - *Post discharge parental anticoagulation - *Warfarin and/or parental anticoagulation education - *Follow up date to check INR post discharge At least 5 days overlap therapy as Inpatient No Meds if any: Prescribed or Continued at Discharge Note: Overlap Therapy is Warfarin and Anticoagulant Meds if any: NOT Prescribed or Continued at Discharge
== END 2018-01-15 14:37 | DRG 872 ==
LOC: ERH 17:30 → 2NB 23:53 → ERHI 23:53 → ENRESERV 01-14 00:23 → 2NB 01-14 01:05 → ENPENDDIS 01-15 11:30 → 2NB 01-15 14:37
PROVIDERS: Dermatology; Emergency Medicine; Internal Medicine; Physician Assistant
DX: A41.9 Sepsis, unspecified organism (principal); C78.7 Secondary malignant neoplasm of liver and intrahepatic bile duct; T81.72XA Complication of vein following a procedure, not elsewhere classified, initial encounter; I80.02 Phlebitis and thrombophlebitis of superficial vessels of left lower extremity; L97.929 Non-pressure chronic ulcer of unspecified part of left lower leg with unspecified severity; C18.9 Malignant neoplasm of colon, unspecified; Z87.820 Personal history of traumatic brain injury; I87.2 Venous insufficiency (chronic) (peripheral); Z79.01 Long term (current) use of anticoagulants; Z90.49 Acquired absence of other specified parts of digestive tract; Z92.21 Personal history of antineoplastic chemotherapy; F17.210 Nicotine dependence, cigarettes, uncomplicated; Z86.718 Personal history of other venous thrombosis and embolism; F31.9 Bipolar disorder, unspecified; Z86.711 Personal history of pulmonary embolism; Z93.4 Other artificial openings of gastrointestinal tract status; Z89.029 Acquired absence of unspecified finger(s); F10.20 Alcohol dependence, uncomplicated; R79.89 Other specified abnormal findings of blood chemistry
CPT/HCPCS: 2NBP; ERO; 36415; 36592; 81001; 82436; 87040; 87086; 93005; 93010; 99291